=== PATIENT | female | born 1945 | race Caucasian/White ===

== ENCOUNTER 2023-03-24 10:37 | Observation (INO) ==
--- NOTE | 2023-03-24 11:02 | ED.PDOC ---
General ED Provider: Dr. LIDIA KING DO Chief Complaint: Shortness of Air Stated Complaint: Patient is a 78 yo F here for weakness and cough Patient arrives afebrile and slighly hypoxic spo2 93% on room air with stable bp Patient brought in by daughter by CAT Jennings has advanced dementia and cannot provide detailed hx Patient follows with Dr. Franco infrequently Patient lives at home with family and caregiver, she is monitored 21/10 Daughter worried because the patient required more people for lift assistance and was coughing today No known falls or injuries No observed aspiration events Daughter would like UA checked, she has frequent UTI's Patient sitting comfortable following commands Well dressed with good hygeine. Time Seen by Provider: 03/24/23 10:45 Information Source: Patient Primary Care Provider: MANDY FRANCO Nursing and Triage Documentation Reviewed and Agree: Yes What is Opioid Naive?: *Opioid Naive implies the patient is not already taking opioids or not chronically receiving opioids on a daily basis. *PRN dosing is not "usually" associated with tolerance. *Patients are at higher risk of over-sedation and aspiration. What is Opioid Tolerant?: *Opioid Tolerance implies less than the expected response to an opioid. *Acquired tolerance is defined by the patient taking 60mg of oral morphine daily (or equianalgesic dose of another opioid) for 1 week or more. *Often associated with chronic pain. *May take more than usual dose to achieve desired pain control. Review of Systems Review Of Systems Constitutional: Reports No symptoms (unable due to dementia) PFSH Female Reproductive History Menstrual Hx Hysterectomy: Yes Hx Tubal Ligation: No Physical Exam Physical Exam Appearance: Reports Well-appearing and Well-nourished Ill-appearing: Not Applicable Pain Distress: Not Applicable Eyes: Reports KEYSHA and EOMI ENT: Reports Ears normal, Nose normal and Oropharynx normal Neck: Supple Respiratory: Reports Airway patent and Breath sounds clear; Denies Crackles or Rhonchi Cardiovascular: Reports RRR and Pulses normal GI/: Reports Soft and Nontender Musculoskeletal: Reports Normal strength and ROM intact Skin: Reports Warm and Dry Neurological: Reports Sensation intact, Motor intact and Cranial nerves intact Psychiatric: Reports Other (unable to assess due to dementia) Interpretation EKG Interpretation EKG Interpretation By: ED Physician Interpretation: NSR rate 83, no stemi q wnl Course Course 03/24/23 11:13 03/24/23 11:13 Orders, Labs, Meds: Lab Review 03/24/23 03/24/23 03/24/23 10:59 11:13 11:18 WBC 12.33 H RBC 4.42 Hgb 13.1 Hct 40.4 MCV 91.4 MCH 29.6 MCHC 32.4 RDW Coeff of Noel 13.5 Plt Count 254 Immature Gran % (Auto) 0.5 Neut % (Auto) 80.6 H Lymph % (Auto) 9.4 L [place] % (Auto) 9.1 Eos % (Auto) 0.1 Baso % (Auto) 0.3 Neut # (Auto) 9.9 H Lymph # (Auto) 1.2 [place] # (Auto) 1.1 Eos # (Auto) 0.0 Baso # (Auto) 0.0 Immature Gran # (Auto) 0.1 Puncture Site Rbrach Base Excess 0.2 O2 Saturation 96.0 ABG pH 7.56 H* ABG pCO2 25.0 L ABG pO2 70.0 L ABG HCO3 22.4 ABG Total CO2 23.2 Hemoglobin 1.6 H Oxyhemoglobin 92.4 L Carboxyhemoglobin 2.9 H Total Hemoglobin 14.0 FiO2 % 21.0 Sodium 134.2 L Potassium 3.70 Chloride 102.9 Carbon Dioxide 21.0 L Anion Gap 14.00 BUN 12.2 Creatinine 0.63 Estimated GFR (MDRD) 91.00 BUN/Creatinine Ratio 19.36 Glucose 157.4 H Lactic Acid 1.26 Calcium 8.44 Total Bilirubin 2.04 H AST 20.1 ALT 13.0 Alkaline Phosphatase 93.9 Total Creatine Kinase 27.0 L Troponin I < 0.012 Total Protein 7.62 Albumin 4.21 Globulin 3.41 Albumin/Globulin Ratio 1.23 Procalcitonin < 0.05 TSH 0.674 Free T4 1.47 Influ A Molecular Assay Negative by naat Influ B Molecular Assay Negative by naat RSV Antigen Negative by naat SARS CoV-2 RNA Rapid DONATO Negative Orders Category Date Time Status ADMIT OBSERVATION [PLACE PATIENT OBSERVATION] .TO ADMISSION 03/24/23 12:48 Active MEDSURG (MONITORED BED) ABG DRAW REQUEST Stat CARDIO 03/24/23 11:18 Completed EKG-(ED ONLY) Stat CARDIO 03/24/23 10:57 Completed OXYGEN Routine CARDIO 03/24/23 13:07 Ordered ACTIVITY .Up With Assistance CARE 12/25/23 13:07 Active INTAKE & OUTPUT Q8HR CARE 03/24/23 13:07 Active NPO REMINDER: IMAGING ONCE CARE 03/24/23 10:57 Completed TELEMETRY MONITORING TELE CARE 03/24/23 12:48 Active VITAL SIGNS Q4HR CARE 03/24/23 13:07 Active CARDIAC DIET DIETARY 03/24/23 Dinner Ordered ABG COOX Stat LAB 03/24/23 11:18 Completed CBC W/ AUTO DIFF DAILY@0600 LAB 03/25/23 06:00 Ordered CBC W/ AUTO DIFF DAILY@0600 LAB 03/26/23 06:00 Ordered CBC W/ AUTO DIFF Stat LAB 03/24/23 11:13 Completed COMPREHENSIVE METABOLIC PANEL DAILY@0600 LAB 03/25/23 06:00 Ordered COMPREHENSIVE METABOLIC PANEL DAILY@0600 LAB 03/26/23 06:00 Ordered COMPREHENSIVE METABOLIC PANEL Stat LAB 03/24/23 11:13 Completed CREATINE KINASE Stat LAB 03/24/23 11:13 Completed FLU A & B MOLECULAR [FLU A/B MOLECULAR] Stat LAB 03/24/23 10:59 Completed FREE T4 (FREE THYROXINE) Stat LAB 03/24/23 11:13 Completed LACTIC ACID Stat LAB 03/24/23 11:13 Completed PROCALCITONIN Stat LAB 03/24/23 11:13 Completed PT WITH INR DAILY@0600 LAB 03/25/23 06:00 Ordered PT WITH INR DAILY@0600 LAB 03/26/23 06:00 Ordered RSV Stat LAB 03/24/23 10:59 Completed SARS COV-2 RNA RAPID DONATO Stat LAB 03/24/23 10:59 Completed THYROID STIMULATING HORMONE Stat LAB 03/24/23 11:13 Completed TROPONIN I Stat LAB 03/24/23 11:13 Completed UA [URINALYSIS C & S IF INDICATED] Stat LAB 03/24/23 10:58 Uncollected Acetaminophen [Tylenol] Meds 03/24/23 13:07 Active 650 mg PO Q4H PRN Enoxaparin Sodium [Lovenox] Meds 03/24/23 13:10 Active 80 mg SUBCUT Q12HR CTA CHEST PE PROTOCOL Stat RADS 03/24/23 10:56 Completed US VENOUS SCAN ARJUN LEGS [U/S VENOUS SCAN ARJUN LEGS] RADS 03/25/23 07:00 Ordered Routine Medications Generic Name Dose Route Start Last Admin Trade Name Freq PRN Reason Stop Dose Admin Acetaminophen 650 mg 03/24/23 13:07 Acetaminophen 325 Mg Tablet PO Q4H PRN Mild Pain Enoxaparin Sodium 80 mg 03/24/23 13:10 03/24/23 13:31 Enoxaparin Sodium 100 Mg/Ml Syr SUBCUT 80 mg Q12HR ROSE MARIE Administration Vital Signs: Temp Pulse Resp BP Pulse Ox 03/24/23 10:51 97.8 F 85 18 126/78 94 L MDM: Patient is a 78 yo F here for weakness and cough per family Patient afebrile and mildly hypoxic at 90% with stable blood pressure Hx form family chart review by me Exam concerning for hypoxia on monitors 3+ labs and 2 images reviewed by me I consulted with radiologist- 2x right lung PE without right heart strain Hospitalist ROCIO Chatman agrees to admission WDX: Hypoxia, weakness, PE, discomfort acute moderate complexity DDX: I considered sepsis, shock, aspiration but these are less likely SDOH: Patient will improve with admission and starting anticoagulation Unfortunately Daughter/POA became upset. She wanted her mother transferred to [facility]. I explained I can try, but we can meet her needs here and they may refuse if higher level of care is not required. She is unsure if I am qualified to care for her mother and questioned my credentials. She then was upset that the PA was the hospitalist instead of a "real doctor." I explained she can Leave A and go anywhere. I can admit her here, or try to transfer. I told her transfer may take time because we are quite busy. She asked why Dr. Franco was not in the hospital today, I explained he was not on the schedule. 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 She declined to trial transfer or leave, she now requests admission for patietn here, I encouraged her to talk to [employer] OPER[facility]/HR/Dr. Farnco if she has concerns about why the hospital is staffed how it is. Team professional despite multiple demeaning remarks from AI. Patient admitted stable. Discharge Plan Discharge Patient Disposition: PLACED OBSERVATION Discharge Problem: Lung nodule, Pleural effusion, Hypoxia, Pulmonary emboli Did you review [place] BINDERY OPERATOR for ALL controlled substances?: Not Applicable ED Provider: LIDIA KING Condition: Fair Physician Progress Note: []
[2023-03-24 11:18] LABS: BASOPHILS % (AUTO) 0.3 % (0.0-3.0); EOSINOPHILS % (AUTO) 0.1 % (0.0-7.0); HEMATOCRIT 40.4 % (37.0-47.0); HEMOGLOBIN 13.1 g/dl (12.0-16.0); IMMATURE GRANULOCYTE # (AUTO) 0.1 (0.0-1.0); IMMATURE GRANULOCYTE % (AUTO) 0.5 % (0.0-5.0); LYMPHOCYTES # (AUTO) 1.2 K/uL (0.60-3.4); LYMPHOCYTES % (AUTO) 9.4 (10.0-50.0); MEAN CORPUSCULAR HEMOGLOBIN 29.6 pg (27.0-31.0); MEAN CORPUSCULAR HGB CONC 32.4 (31.8-35.4); MEAN CORPUSCULAR VOLUME 91.4 fl (81.0-99.0); MONOCYTES # (AUTO) 1.1 K/uL (0.4-2.0); MONOCYTES % (AUTO) 9.1 (0-10); NEUTROPHILS # (AUTO) 9.9 K/ul (2.0-6.9); NEUTROPHILS % (AUTO) 80.6 % (42.2-75.2); PLATELET COUNT 254 10^3/uL (140-440); RDW COEFFICIENT OF VARIATION 13.5 % (11.6-14.8); RED BLOOD COUNT 4.42 10^6/ul (4.20-5.40); WHITE BLOOD COUNT 12.33 K/ul (4.6-10.2)
[2023-03-24 11:32] LABS: ALBUMIN 4.21 g/dL (3.5-5.0); ALKALINE PHOSPHATASE 93.9 U/L (53-141); ASPARTATE AMINO TRANSFERASE 20.1 U/L (14-36); BILIRUBIN,TOTAL 2.04 mg/dL (0.2-1.3); BLOOD UREA NITROGEN 12.2 mg/dL (7-17); CALCIUM 8.44 mg/dL (8.4-10.2); CHLORIDE 102.9 mmol/L (98-107); CREATININE 0.63 mg/dL (0.60-1.30); GLUCOSE 157.4 mg/dL (74-106); SODIUM 134.2 mmol/L (134.5-145); TOTAL PROTEIN 7.62 g/dL (6.3-8.2)
[2023-03-24 11:32] LABS: ABG PH 7.56 (7.35-7.45); BEecf 0.2 (-2.0-3.0); COHb 2.9 (0.5-1.5); HCO3 22.4 (21-28); MetHb 1.6 (0-1.5); TCO2 23.2 (19-24)
[2023-03-24 11:33] LABS: ABG O2 HGB 92.4 % (95-100)
[2023-03-24 11:47] LABS: TROPONIN I < 0.012 ng/ml (0.0000-0.120)
[2023-03-24 11:59] LABS: MOLECULAR FLU A NEGATIVE BY NAAT (NEGATIVE); MOLECULAR FLU B NEGATIVE BY NAAT (NEGATIVE); RSV MOLECULAR NEGATIVE BY NAAT (NEGATIVE); SARS COV-2 RNA RAPID NAAT NEGATIVE (NEGATIVE)
[2023-03-24 12:02] LABS: THYROID STIMULATING HORMONE 0.674 uIU/L (0.465-4.68)
--- NOTE | 2023-03-24 12:43 | CT ---
EXAM: CTA CHEST WITH CONTRAST HISTORY: Hypoxia, smoker and cough COMPARISON: None TECHNIQUE: Multi-slice transaxial helical images are acquired through the chest according to an [facility] ogram protocol. 3-D volume images are provided. All CT scans are performed using dose optimization techniques as appropriate to the performed exam and includes at least one of the following: Automate d exposure control, adjustment of the mA and/or kV according to size, and the use of iterative recons truction technique. CONTRAST: 100 mL Omnipaque-350 IV FINDINGS: There are intraluminal filling defects within lobar branches of the middle lobe and lobar to segmental branches of the right lower lobe. No other pulmonary emboli are appreciated. The heart is mildly enlarged. There is no evidence of right ventricular strain. No pericardial effusion. Tr briana right pleural fluid layers dependently. A left pleural fluid. There is a solid nodule in the ri ght upper lobe with spiculated margins measuring 1.1 x 1.1 cm on series 9 image number 16. There is an additional solid nodule in the right upper lobe measuring 0.8 cm on image number 26. The dependen t lungs are atelectatic. No acute infiltrates. Simple acquired renal cysts are noted. There is suggestion of a previous right partial posterior hep atectomy. The solid organs are otherwise normal in their visualized portions of the upper abdomen. No suspicious osteolytic or osteoblastic bone lesions. No acute bony abnormalities are evident. IMPRESSION: - Pulmonary emboli within lobar branches of the middle lobe and lobar/subsegmental branches of the ri ght lower lobe. No right ventricular strain. - Two solid nodules in the right upper lobe measuring 1.1 cm and 0.8 cm respectively. Recommend corby elation with a PET CT and/or biopsy. - Mild cardiomegaly. - No acute infiltrates. - Trace right pleural effusion. - Results discussed with Dr. Orr in the ER on 03/24/2023 at [address] scans are performed using dose optimization techniques as appropriate to the performed exam an d include at least one of the following: Automated exposure control, adjustment of the mA and/or kV according t o size, and the use of iterative reconstruction technique.
--- NOTE | 2023-03-24 13:00 | PCM ---
Date of Service Date Seen by Provider: 03/24/23 Time Seen by Provider: 13:00 Admit Day/Time Admission Date: 03/24/23 Admission Time: 12:48 Reason for Admission Chief Complaint: RLL Hospital Provider Hospital [facility] Primary Care Physician: MANDY GONZÁLES History of Present Illness History of Present Illness: Patient is an 78 year old female with pmhx of dementia, hypothyroidism, hypertension, hyperlipidemia, gerd from home who presented for weakness. Patient history provided by daughter/POA. She's been declining since thanksgiving from a mobility standpoint. She then has seemed more weak than normal. Her mentation is at baseline. She has had a cough. She also has frequent UTIs. In the ER she was found to have right sided pulmonary emboli. No evidence of heart strain. UA not yet collected. Labs rather unremarkable. O2 sat 90%. Daughter initially wanted transfer but after discussing expected plan of care here she was agreeable to stay. Patient unable to answer any orientation questions appropriately and is unable to tell me why she is here. ROS limited by patient dementia, obtained from daughter. Case Discussed With Case Discussed With: Patient's case was discussed with the ER Physicians, Dr. Orr. Allergies Allergies Allergy/AdvReac Type Severity Reaction Status Date / Time amoxicillin trihydrate AdvReac Nausea Verified 10/08/22 17:46 [From Augmentin] codeine AdvReac Nausea Verified 10/08/22 17:46 potassium clavulanate AdvReac Nausea Verified 10/08/22 17:46 [From Augmentin] Current Medications Home Medications enalapril maleate 5 mg tablet 5 mg PO DAILY 10/20/14 [History Confirmed 03/24/23 Last Taken Unknown] levothyroxine 50 mcg tablet (Synthroid) 50 mcg PO QDAC 10/20/14 [History Confirmed 03/24/23 Last Taken Unknown] nifedipine 60 mg tablet,extended release 24 hr (Procardia XL) 30 mg PO DAILY 10/20/14 [History Confirmed 03/24/23 Last Taken Unknown] simvastatin 40 mg tablet 40 mg PO BEDTIME 10/20/14 [History Confirmed 03/24/23 Last Taken Unknown] fluoxetine 10 mg capsule (Prozac) 20 mg PO QDAY 06/12/22 [History Confirmed 03/24/23 Last Taken Unknown] ergocalciferol (vitamin D2) 1,250 mcg (50,000 unit) capsule (Vitamin D2) 1,250 mcg PO DAILY 10/08/22 [History Confirmed 03/24/23 Last Taken Unknown] omeprazole 20 mg capsule,delayed release 20 mg PO DAILY 10/08/22 [History Confirmed 03/24/23 Last Taken Unknown] quetiapine 25 mg tablet 25 mg PO DAILY 10/08/22 [History Confirmed 03/24/23 Last Taken Unknown] furosemide 20 mg tablet 20 mg PO DAILY 03/24/23 [History Confirmed 03/24/23 Last Taken Unknown] lorazepam 0.5 mg tablet 0.25 mg PO BID PRN agitation 03/24/23 [History Confirmed 03/24/23 Last Taken Unknown] memantine 28 mg capsule sprinkle,extended release 24hr 28 mg PO DAILY 03/24/23 [History Confirmed 03/24/23 Last Taken Unknown] potassium chloride 10 mEq tablet,extended release 10 meq PO BID 03/24/23 [History Confirmed 03/24/23 Last Taken Unknown] Home Acetaminophen (Acetaminophen 325 Mg Tablet) 650 mg PO Q4H PRN PRN Reason: Mild Pain Enoxaparin Sodium (Enoxaparin Sodium 100 Mg/Ml Syr) 80 mg SUBCUT Q12HR ROSE MARIE Last Admin: 03/24/23 13:31 Dose: 80 mg Opioid Naive vs. Tolerant Does Patient Take Opioids?: No Is Patient Opioid Naive?: Yes What is Opioid Naive?: *Opioid Naive implies the patient is not already taking opioids or not chronically receiving opioids on a daily basis. *PRN dosing is not "usually" associated with tolerance. *Patients are at higher risk of over-sedation and aspiration. Is Patient Opioid Tolerant?: No What is Opioid Tolerant?: *Opioid Tolerance implies less than the expected response to an opioid. *Acquired tolerance is defined by the patient taking 60mg of oral morphine daily (or equianalgesic dose of another opioid) for 1 week or more. *Often associated with chronic pain. *May take more than usual dose to achieve desired pain control. Review of Systems Constitutional: Reports Fatigue and Weakness; Denies Fever Respiratory: Reports Cough Neurological: Reports Weakness and Problems with walking Physical examination Most Recent Vital Signs: Most Recent Vital Signs Temperature 97.8 F 03/24/23 10:51 Temperature Source Infrared 03/24/23 10:51 Pulse Rate 85 12/25/23 10:51 Respiratory Rate 18 03/24/23 10:51 Blood Pressure 126/78 03/24/23 10:51 O2 Sat by Pulse Oximetry 94 L 03/24/23 10:51 Height 5 ft 5 in 03/24/23 10:51 Weight 180 lb 1.883 oz 03/24/23 10:51 Telemetry Heart Rate 75 03/08/16 13:00 Appearance: Positive No Apparent Distress and Other (+Alert ) Skin: Positive [place], Warm and Good Turgor; Negative Rashes HEENT: Positive Normocephalic and Atraumatic Neck: Positive Supple and Midline Trachea Chest/Lungs: Positive Clear to Auscultation Bilaterally; Negative Rales, Rhonci or Wheezes Heart: Positive RRR GI/: Positive Soft, Nontender, Bowel Sounds Normal and No Distention Neurological: Positive Alert, Disorinted (baseline ) and Other (+generalized weakness, equal strength. ) Psychiatric: Positive Other (+unable to fully assess due to dementia. ) Labs This Visit Labs This Visit: Labs This Visit 03/24/23 03/24/23 03/24/23 10:59 11:13 11:18 WBC 12.33 H RBC 4.42 Hgb 13.1 Hct 40.4 MCV 91.4 MCH 29.6 MCHC 32.4 RDW Coeff of Noel 13.5 Plt Count 254 Immature Gran % (Auto) 0.5 Neut % (Auto) 80.6 H Lymph % (Auto) 9.4 L [place] % (Auto) 9.1 Eos % (Auto) 0.1 Baso % (Auto) 0.3 Neut # (Auto) 9.9 H Lymph # (Auto) 1.2 [place] # (Auto) 1.1 Eos # (Auto) 0.0 Baso # (Auto) 0.0 Immature Gran # (Auto) 0.1 Puncture Site Rbrach Base Excess 0.2 O2 Saturation 96.0 ABG pH 7.56 H* ABG pCO2 25.0 L ABG pO2 70.0 L ABG HCO3 22.4 ABG Total CO2 23.2 Hemoglobin 1.6 H Oxyhemoglobin 92.4 L Carboxyhemoglobin 2.9 H Total Hemoglobin 14.0 FiO2 % 21.0 Sodium 134.2 L Potassium 3.70 Chloride 102.9 Carbon Dioxide 21.0 L Anion Gap 14.00 BUN 12.2 Creatinine 0.63 Estimated GFR (MDRD) 91.00 BUN/Creatinine Ratio 19.36 Glucose 157.4 H Lactic Acid 1.26 Calcium 8.44 Total Bilirubin 2.04 H AST 20.1 ALT 13.0 Alkaline Phosphatase 93.9 Total Creatine Kinase 27.0 L Troponin I < 0.012 Total Protein 7.62 Albumin 4.21 Globulin 3.41 Albumin/Globulin Ratio 1.23 Procalcitonin < 0.05 TSH 0.674 Free T4 1.47 Influ A Molecular Assay Negative by naat Influ B Molecular Assay Negative by naat RSV Antigen Negative by naat SARS CoV-2 RNA Rapid DONATO Negative Imaging Imaging: EXAM: CTA CHEST WITH CONTRAST HISTORY: Hypoxia, smoker and cough COMPARISON: None TECHNIQUE: Multi-slice transaxial helical images are acquired through the chest according to an angiogram protocol. 3-D volume images are provided. All CT scans are performed using dose optimization techniques as appropriate to the performed exam and includes at least one of the following: Automated exposure control, adjustment of the mA and/or kV according to size, and the use of iterative reconstruction technique. CONTRAST: 100 mL Omnipaque-350 IV FINDINGS: There are intraluminal filling defects within lobar branches of the middle lobe and lobar to segmental branches of the right lower lobe. No other pulmonary emboli are appreciated. The heart is mildly enlarged. There is no evidence of right ventricular strain. No pericardial effusion. Trace right pleural fluid layers dependently. A left pleural fluid. There is a solid nodule in the right upper lobe with spiculated margins measuring 1.1 x 1.1 cm on series 9 image number 16. There is an additional solid nodule in the right upper lobe measuring 0.8 cm on image number 26. The dependent lungs are atelectatic. No acute infiltrates. Simple acquired renal cysts are noted. There is suggestion of a previous right partial posterior hepatectomy. The solid organs are otherwise normal in their visualized portions of the upper abdomen. No suspicious osteolytic or osteoblastic bone lesions. No acute bony abnormalities are evident. IMPRESSION: - Pulmonary emboli within lobar branches of the middle lobe and lobar/subsegmental branches of the right lower lobe. No right ventricular strain. - Two solid nodules in the right upper lobe measuring 1.1 cm and 0.8 cm respectively. Recommend correlation with a PET CT and/or biopsy. - Mild cardiomegaly. - No acute infiltrates. - Trace right pleural effusion. - Results discussed with Dr. Orr in the ER on 03/24/2023 at 1237 hours. Review Statement Review Statement: I have independently reviewed and interpreted the labs/EKGs/imaging that were ordered by the ER provider. I have reviewed all outside records that are available currently in our EMR including imaging/notes/labs from previous visits. Plan Plan: 1. Pulmonary emboli of right lower lobe - Lovenox 1 mg/kg q12hrs. O2 prn. US duplex of lower ext in AM. No evidence of heart strain on CT. Trop negative. O2 saturation about 90%. Echo when able, otherwise will need outpatient. 2. Dementia - Continue home medications. Lorazepam 0.25 mg prn bid for agitation, per daughter. 3. Hypertension - Cont home meds 4. Hyperlipidemia - Cont simvastatin 5. GERD - Cont home meds 6. Hypothyroidism - Cont home meds 7. Lung nodules, right - F/u outpatient Will f/u on UA and add antibiotics as warranted. DVT Prophylaxis: Lovenox Time Spent: Greater than 80 minutes spent with patient, 50% of the time spent with this patient was devoted to counseling and coordination of care. [facility] Plannin minutes spent discussing advance care planning. DNI/CPR Admit to: Obs Discussed Plan of Care with Dr. Payam Stapleton.
[2023-03-24] MEDS ORDERED: TYLENOL PO PRN (13:07)
[2023-03-24] MEDS: LOVENOX SUBCUT SCH ×2 (13:31→20:24)
[2023-03-24] MEDS: MICRO-K CAP PO SCH (18:02)
[2023-03-24 18:43] LABS: BILIRUBIN,URINE Negative (NEGATIVE); CLARITY,URINE Clear (CLEAR); COLOR,URINE Yellow (YELLOW); GLUCOSE, URINE (UA) Negative (NEGATIVE); KETONES,URINE Negative (NEGATIVE); LEUKOCYTE ESTERASE ,URINE Negative (NEGATIVE); NITRITE,URINE Negative (NEGATIVE); PH,URINE 7.5 (5-9); PROTEIN,URINE Negative (NEGATIVE); URINE, BLOOD Trace-intact (NEGATIVE)
[2023-03-24 18:51] LABS: BACTERIA,URINE 4+ (NOT PRESENT)
[2023-03-24 18:52] LABS: MUCUS,URINE TRACE (NOT PRESENT)
[2023-03-24] MEDS: ZOCOR PO SCH (20:23)
[2023-03-24] MEDS: ATIVAN PO PRN (20:24)
[2023-03-24] MEDS: SEROQUEL PO SCH (20:24)
[2023-03-24] MEDS: CALMOSEPTINE OINTMENT TP SCH (20:36)
[2023-03-25] MEDS: PRILOSEC PO SCH (05:36)
[2023-03-25] MEDS: LASIX TAB PO SCH (05:36)
[2023-03-25] MEDS: SYNTHROID PO SCH (05:37)
[2023-03-25 05:54] LABS: BASOPHILS % (AUTO) 0.6 % (0.0-3.0); EOSINOPHILS # (AUTO) 0.1 K/ul (0.0-0.7); EOSINOPHILS % (AUTO) 1.4 % (0.0-7.0); HEMATOCRIT 38.8 % (37.0-47.0); HEMOGLOBIN 12.4 g/dl (12.0-16.0); IMMATURE GRANULOCYTE % (AUTO) 0.3 % (0.0-5.0); LYMPHOCYTES % (AUTO) 28.6 (10.0-50.0); MEAN CORPUSCULAR HEMOGLOBIN 29.5 pg (27.0-31.0); MEAN CORPUSCULAR VOLUME 92.2 fl (81.0-99.0); MONOCYTES # (AUTO) 0.8 K/uL (0.4-2.0); MONOCYTES % (AUTO) 11.2 (0-10); NEUTROPHILS % (AUTO) 57.9 % (42.2-75.2); PLATELET COUNT 221 10^3/uL (140-440); RDW COEFFICIENT OF VARIATION 13.5 % (11.6-14.8); RED BLOOD COUNT 4.21 10^6/ul (4.20-5.40); WHITE BLOOD COUNT 6.96 K/ul (4.6-10.2)
[2023-03-25 06:07] LABS: ALANINE AMINOTRANSFERASE 13.6 U/L (0-35); ALBUMIN 3.69 g/dL (3.5-5.0); ALKALINE PHOSPHATASE 86.6 U/L (53-141); ASPARTATE AMINO TRANSFERASE 21.5 U/L (14-36); BILIRUBIN,TOTAL 1.51 mg/dL (0.2-1.3); BLOOD UREA NITROGEN 10.6 mg/dL (7-17); CALCIUM 8.62 mg/dL (8.4-10.2); CHLORIDE 102.7 mmol/L (98-107); CREATININE 0.65 mg/dL (0.60-1.30); GLUCOSE 105.6 mg/dL (74-106); POTASSIUM 3.2 mmol/L (3.5-5.1); SODIUM 135.1 mmol/L (134.5-145); TOTAL PROTEIN 6.92 g/dL (6.3-8.2)
[2023-03-25 06:10] LABS: PROTHROMBIN TIME 10.7 SEC (9.3-11.0)
[2023-03-25] MEDS ORDERED: K-DUR PO ONE (08:13)
[2023-03-25] MEDS ORDERED: PROZAC PO SCH (09:00)
[2023-03-25] MEDS: PROCARDIA XL PO SCH (09:38)
[2023-03-25] MEDS: LOVENOX SUBCUT SCH ×2 (09:38→21:01)
[2023-03-25] MEDS: PROZAC PO SCH (09:38)
[2023-03-25] MEDS: VASOTEC PO SCH (09:38)
[2023-03-25] MEDS: MICRO-K CAP PO SCH ×2 (09:38→17:09)
[2023-03-25] MEDS: CALMOSEPTINE OINTMENT TP SCH ×2 (09:56→21:09)
--- NOTE | 2023-03-25 10:36 | US ---
EXAM: BILATERAL LOWER EXTREMITY DEEP VENOUS ULTRASOUND WITH DOPPLER IMAGING HISTORY: pain. TECHNIQUE: Maria-scale ultrasound with compression maneuvers and color and spectral Doppler ultrasound at rest and with augmentation of the veins was performed. Images were obtained and stored in a perm anent archive. Color spectral Doppler performed. COMPARISON: None FINDINGS / IMPRESSION: No deep venous thrombosis (DVT) in the bilateral lower extremities. No superficial venous thrombosis (SVT) in the bilateral lower extremities at the levels examined.
--- NOTE | 2023-03-25 11:54 | PCM.PROG ---
Date/Time Seen Date Seen by Provider: 03/25/23 Time Seen by Provider: 09:00 Provider Provider: BIMAL WOMACK PA-C, [facility] ([facility]ist Group Chief Complaint Chief Complaint: RLL PE Subjective Subjective: Daughter at bedside. Patient denies complaints but poor historian. Daughter feels patient looks better today. She states at baseline patient is able to ambulate with minimal assistance. She has been very weak. Still requiring oxygen today, working on weaning down. Objective Appearance: Positive No Apparent Distress and Other (+Alert ) Chest/Lungs: Positive Clear to Auscultation Bilaterally; Negative Rales, Rhonci or Wheezes Heart: Positive RRR GI/: Positive Soft, Nontender and Bowel Sounds Normal Musculoskeletal: Positive Other (+generalized nonpitting edema jojo lower ext, mild ) Neurological: Positive Cranial Nerves Intact (able to follow basic commands ), Alert, Disorinted (baseline ) and Other (+generalized weakness ) Vital Signs Vital Signs: Vital Signs: Last 24 Hours 03/24/23 15:04 03/24/23 15:04 03/24/23 15:36 Temperature 98.0 F Temperature Source Oral Pulse Rate 82 Respiratory Rate 16 18 Blood Pressure Blood Pressure Mean Blood Pressure Left Arm 128/77 Blood Pressure Location Blood Pressure Position Sitting O2 Sat by Pulse Oximetry 91 L Oxygen Delivery Method Room Air Room Air Oxygen Flow Rate Height 5 ft 4 in Weight 175 lb Telemetry Type Remote Telemetry Telemetry Monitoring Started Telemetry Heart Rate 85 Telemetry SPO2 96 EKG UT Interval 0.19 EKG QRS Interval 0.05 L Telemetry Strip Reading SR 03/24/23 16:00 03/24/23 17:00 03/24/23 17:14 Temperature Temperature Source Pulse Rate Respiratory Rate Blood Pressure Blood Pressure Mean Blood Pressure Left Arm Blood Pressure Location Blood Pressure Position O2 Sat by Pulse Oximetry 96 Oxygen Delivery Method Nasal Cannula Nasal Cannula Nasal Cannula Oxygen Flow Rate 2 Height Weight Telemetry Type Telemetry Monitoring Telemetry Heart Rate Telemetry SPO2 EKG UT Interval EKG QRS Interval Telemetry Strip Reading 03/24/23 18:00 03/24/23 18:00 03/24/23 19:00 Temperature 97.7 F Temperature Source Oral Pulse Rate 68 Respiratory Rate 15 Blood Pressure 95/62 Blood Pressure Mean 73 Blood Pressure Left Arm Blood Pressure Location Right Arm Blood Pressure Position Supine O2 Sat by Pulse Oximetry 96 Oxygen Delivery Method Nasal Cannula Nasal Cannula Oxygen Flow Rate 1 Height Weight Telemetry Type Remote Telemetry Telemetry Monitoring Continues Telemetry Heart Rate 70 Telemetry SPO2 95 EKG UT Interval 0.19 EKG QRS Interval 0.07 Telemetry Strip Reading SR 03/24/23 19:00 03/24/23 19:53 03/24/23 20:00 Temperature Temperature Source Pulse Rate Respiratory Rate Blood Pressure Blood Pressure Mean Blood Pressure Left Arm Blood Pressure Location Blood Pressure Position O2 Sat by Pulse Oximetry 94 L Oxygen Delivery Method Nasal Cannula Nasal Cannula Nasal Cannula Oxygen Flow Rate 2 Height Weight Telemetry Type Telemetry Monitoring Telemetry Heart Rate Telemetry SPO2 EKG UT Interval EKG QRS Interval Telemetry Strip Reading 03/24/23 20:00 03/24/23 21:00 03/24/23 21:23 Temperature 98.2 F Temperature Source Oral Pulse Rate 70 Respiratory Rate 16 Blood Pressure 97/59 L Blood Pressure Mean 71 Blood Pressure Left Arm Blood Pressure Location Left Arm Blood Pressure Position Supine O2 Sat by Pulse Oximetry 96 Oxygen Delivery Method Nasal Cannula Nasal Cannula Nasal Cannula Oxygen Flow Rate 1 Height Weight Telemetry Type Telemetry Monitoring Telemetry Heart Rate Telemetry SPO2 EKG UT Interval EKG QRS Interval Telemetry Strip Reading 03/24/23 22:00 03/24/23 23:00 03/25/23 00:00 Temperature Temperature Source Pulse Rate Respiratory Rate Blood Pressure Blood Pressure Mean Blood Pressure Left Arm Blood Pressure Location Blood Pressure Position O2 Sat by Pulse Oximetry Oxygen Delivery Method Nasal Cannula Nasal Cannula Nasal Cannula Oxygen Flow Rate Height Weight Telemetry Type Telemetry Monitoring Telemetry Heart Rate Telemetry SPO2 EKG UT Interval EKG QRS Interval Telemetry Strip Reading 03/25/23 01:00 03/25/23 01:00 03/25/23 02:00 Temperature 98.6 F Temperature Source Temporal Artery Scan Pulse Rate 92 Respiratory Rate 16 Blood Pressure 110/72 Blood Pressure Mean 84 Blood Pressure Left Arm Blood Pressure Location Left Arm Blood Pressure Position Supine O2 Sat by Pulse Oximetry 96 Oxygen Delivery Method Nasal Cannula Room Air Oxygen Flow Rate Height Weight Telemetry Type Remote Telemetry Telemetry Monitoring Continues Telemetry Heart Rate 63 Telemetry SPO2 94 EKG UT Interval 0.20 EKG QRS Interval 0.07 Telemetry Strip Reading SR 03/25/23 02:00 03/25/23 03:00 03/25/23 04:00 Temperature Temperature Source Pulse Rate Respiratory Rate Blood Pressure Blood Pressure Mean Blood Pressure Left Arm Blood Pressure Location Blood Pressure Position O2 Sat by Pulse Oximetry Oxygen Delivery Method Nasal Cannula Room Air Room Air Oxygen Flow Rate Height Weight Telemetry Type Telemetry Monitoring Telemetry Heart Rate Telemetry SPO2 EKG UT Interval EKG QRS Interval Telemetry Strip Reading 03/25/23 05:00 03/25/23 05:04 03/25/23 05:06 Temperature 98.4 F Temperature Source Oral Pulse Rate 71 Respiratory Rate 18 Blood Pressure 110/68 Blood Pressure Mean 82 Blood Pressure Left Arm Blood Pressure Location Right Arm Blood Pressure Position Supine O2 Sat by Pulse Oximetry 96 95 Oxygen Delivery Method Nasal Cannula Nasal Cannula Nasal Cannula Oxygen Flow Rate 2 2 Height Weight Telemetry Type Telemetry Monitoring Telemetry Heart Rate Telemetry SPO2 EKG UT Interval EKG QRS Interval Telemetry Strip Reading 03/25/23 05:41 03/25/23 07:00 03/25/23 07:00 Temperature Temperature Source Pulse Rate Respiratory Rate Blood Pressure Blood Pressure Mean Blood Pressure Left Arm Blood Pressure Location Blood Pressure Position O2 Sat by Pulse Oximetry Oxygen Delivery Method Nasal Cannula Nasal Cannula Oxygen Flow Rate Height Weight Telemetry Type Remote Telemetry Telemetry Monitoring Continues Telemetry Heart Rate 61 Telemetry SPO2 95 EKG UT Interval 0.18 EKG QRS Interval 0.09 Telemetry Strip Reading NSR 03/25/23 08:00 03/25/23 09:00 03/25/23 10:00 Temperature Temperature Source Pulse Rate Respiratory Rate Blood Pressure Blood Pressure Mean Blood Pressure Left Arm Blood Pressure Location Blood Pressure Position O2 Sat by Pulse Oximetry Oxygen Delivery Method Nasal Cannula Nasal Cannula Nasal Cannula Oxygen Flow Rate Height Weight Telemetry Type Telemetry Monitoring Telemetry Heart Rate Telemetry SPO2 EKG UT Interval EKG QRS Interval Telemetry Strip Reading 03/25/23 10:00 03/25/23 10:00 03/25/23 10:46 Temperature 97.5 F L Temperature Source Oral Pulse Rate 77 Respiratory Rate 13 Blood Pressure 124/70 Blood Pressure Mean 88 Blood Pressure Left Arm Blood Pressure Location Right Arm Blood Pressure Position Supine O2 Sat by Pulse Oximetry 98 97 Oxygen Delivery Method Nasal Cannula Nasal Cannula Nasal Cannula Oxygen Flow Rate 2 2 1 Height Weight Telemetry Type Telemetry Monitoring Telemetry Heart Rate Telemetry SPO2 EKG UT Interval EKG QRS Interval Telemetry Strip Reading 03/25/23 11:00 Temperature Temperature Source Pulse Rate Respiratory Rate Blood Pressure Blood Pressure Mean Blood Pressure Left Arm Blood Pressure Location Blood Pressure Position O2 Sat by Pulse Oximetry Oxygen Delivery Method Nasal Cannula Oxygen Flow Rate Height Weight Telemetry Type Telemetry Monitoring Telemetry Heart Rate Telemetry SPO2 EKG UT Interval EKG QRS Interval Telemetry Strip Reading Lab Results Lab Results: Lab Results: Last 24 Hours 03/25/23 03/24/23 03/24/23 05:04 18:36 11:13 WBC 6.96 D RBC 4.21 Hgb 12.4 Hct 38.8 MCV 92.2 MCH 29.5 MCHC 32.0 RDW Coeff of Noel 13.5 Plt Count 221 Immature Gran % (Auto) 0.3 Neut % (Auto) 57.9 Lymph % (Auto) 28.6 [place] % (Auto) 11.2 H Eos % (Auto) 1.4 Baso % (Auto) 0.6 Neut # (Auto) 4.0 Lymph # (Auto) 2.0 [place] # (Auto) 0.8 Eos # (Auto) 0.1 Baso # (Auto) 0.0 Immature Gran # (Auto) 0.0 PT 10.7 INR 1.03 Sodium 135.1 Potassium 3.20 L Chloride 102.7 Carbon Dioxide 27.0 Anion Gap 8.60 BUN 10.6 Creatinine 0.65 Estimated GFR (MDRD) 88.00 BUN/Creatinine Ratio 16.30 Glucose 105.6 D Calcium 8.62 Total Bilirubin 1.51 H AST 21.5 ALT 13.6 Alkaline Phosphatase 86.6 Total Protein 6.92 Albumin 3.69 Globulin 3.23 Albumin/Globulin Ratio 1.14 Procalcitonin < 0.05 TSH 0.674 Free T4 1.47 Urine Color Yellow Urine Clarity Clear Urine pH 7.5 Ur Specific [place] 1.015 Urine Protein Negative Urine Glucose (UA) Negative Urine Ketones Negative Urine Blood Trace-intact H Urine Nitrite Negative Urine Bilirubin Negative Urine Urobilinogen 2.0 H Ur Leukocyte Esterase Negative Urine Microscopic WBC 2-5 Ur Squamous Epith Cells 5-10 Urine Bacteria 4+ Urine Mucus Trace Influ A Molecular Assay Influ B Molecular Assay RSV Antigen SARS CoV-2 RNA Rapid DONATO 03/24/23 10:59 WBC RBC Hgb Hct MCV MCH MCHC RDW Coeff of Noel Plt Count Immature Gran % (Auto) Neut % (Auto) Lymph % (Auto) [place] % (Auto) Eos % (Auto) Baso % (Auto) Neut # (Auto) Lymph # (Auto) [place] # (Auto) Eos # (Auto) Baso # (Auto) Immature Gran # (Auto) PT INR Sodium Potassium Chloride Carbon Dioxide Anion Gap BUN Creatinine Estimated GFR (MDRD) BUN/Creatinine Ratio Glucose Calcium Total Bilirubin AST ALT Alkaline Phosphatase Total Protein Albumin Globulin Albumin/Globulin Ratio Procalcitonin TSH Free T4 Urine Color Urine Clarity Urine pH Ur Specific [place] Urine Protein Urine Glucose (UA) Urine Ketones Urine Blood Urine Nitrite Urine Bilirubin Urine Urobilinogen Ur Leukocyte Esterase Urine Microscopic WBC Ur Squamous Epith Cells Urine Bacteria Urine Mucus Influ A Molecular Assay Negative by naat Influ B Molecular Assay Negative by naat RSV Antigen Negative by naat SARS CoV-2 RNA Rapid DONATO Negative Additional Comments Additional Comments: I have independently reviewed and interpreted the labs/EKGs/imaging ordered during this hospital stay. I have reviewed outside records that are available in our EMR that pertain to medical stay including imaging/notes/labs from previous visits. EXAM: BILATERAL LOWER EXTREMITY DEEP VENOUS ULTRASOUND WITH DOPPLER IMAGING HISTORY: pain. TECHNIQUE: Maria-scale ultrasound with compression maneuvers and color and spectral Doppler ultrasound at rest and with augmentation of the veins was performed. Images were obtained and stored in a permanent archive. Color spectral Doppler performed. COMPARISON: None FINDINGS / IMPRESSION: No deep venous thrombosis (DVT) in the bilateral lower extremities. No superficial venous thrombosis (SVT) in the bilateral lower extremities at the levels examined. Active Medications Active Medications: Medications Generic Name Dose Route Start Last Admin Trade Name Freq PRN Reason Stop Dose Admin Acetaminophen 650 mg 03/24/23 13:07 Acetaminophen 325 Mg Tablet PO Q4H PRN Mild Pain Calamine/Phenol 1 applic 03/24/23 21:00 03/25/23 09:56 Menthol/Zinc Oxide 113 Gm Ointment TP 1 applic BID ROSE MARIE Administration Enalapril Maleate 5 mg 03/25/23 09:00 03/25/23 09:38 Enalapril Maleate 5 Mg Tablet PO 5 mg DAILY ROSE MARIE Administration Enoxaparin Sodium 80 mg 03/24/23 13:10 03/25/23 09:38 Enoxaparin Sodium 100 Mg/Ml Syr SUBCUT 80 mg Q12HR ROSE MARIE Administration Fluoxetine HCl 20 mg 03/25/23 09:00 03/25/23 09:38 Fluoxetine Hcl 20 Mg Capsule PO 20 mg DAILY ROSE MARIE Administration Furosemide 20 mg 03/25/23 06:00 03/25/23 05:36 Furosemide 20 Mg Tablet PO 20 mg QDAC2 ROSE MARIE Administration Levothyroxine Sodium 50 mcg 03/25/23 06:30 03/25/23 05:37 Levothyroxine Sodium 50 Mcg Tablet PO 50 mcg 0630 ROSE MARIE Administration Lorazepam 0.25 mg 03/24/23 16:24 03/24/23 20:24 Lorazepam 0.5 Mg Tablet PO 0.25 mg BID PRN Administration Agitation Nifedipine 30 mg 03/25/23 09:00 03/25/23 09:38 Nifedipine 30 Mg Tab.Er.24 PO 30 mg DAILY ROSE MARIE Administration Non-Formulary Medication 28 mg 03/25/23 09:00 Memantine PO DAILY ROSE MARIE Omeprazole 20 mg 03/25/23 06:00 03/25/23 05:36 Omeprazole 20 Mg Capsule.Dr PO 20 mg QDAC2 ROSE MARIE Administration Potassium Chloride 10 meq 03/24/23 17:00 03/25/23 09:38 Potassium Chloride 10 Meq Capsule.Er PO 10 meq BIDWM2 ROSE MARIE Administration Quetiapine Fumarate 25 mg 03/24/23 21:00 03/24/23 20:24 Quetiapine Fumarate 25 Mg Tablet PO 25 mg DAILY ROSE MARIE Administration Simvastatin 40 mg 03/24/23 21:00 03/24/23 20:23 Simvastatin 40 Mg Tablet PO 40 mg BEDTIME ROSE MARIE Administration Sodium Chloride 1 syr 03/24/23 21:00 03/25/23 05:37 0.9% Sodium Chloride 10 Ml Disp.Syrin IVF 1 syr Q8HR ROSE MARIE Administration Plan Plan: 1. Acute hypoxic respiratory failure in setting of PEs of right middle/lower lobe - RT consult, O2 prn, wean when able. May need fdc. 2. Pulmonary emboli of right middle/lower lobe - Lovenox 1 mg/kg q12hrs. Will huff novel agents. O2 prn. US duplex of lower ext shows no DVT. No evidence of heart strain on CT. Trop negative. O2 saturation about 90%. Echo when able, otherwise will need outpatient. 3. Dementia - Continue home medications. Lorazepam 0.25 mg prn bid for agitation, per daughter. 4. Hypertension - Cont home meds 5. Hyperlipidemia - Cont simvastatin 6. GERD - Cont home meds 7. Hypothyroidism - Cont home meds 8. Lung nodules, right - F/u outpatient. Discussed with daughter. 9. Hypokalemia - Replaced Dispo: Possible DC tomorrow Daughter requests pulm referral for PEs/lung nodules. CM aware. DVT: Lovenox Review Statement Review Statement: I have personally discussed and reviewed the patient's visit/currently labs/imaging/decision making with Dr. Stapleton, my supervising attending. Greater that 50 minutes spent with patient, 50% of the time spent with this patient was devoted to counseling and coordination of care.
[2023-03-25] MEDS: SEROQUEL PO SCH (11:56)
[2023-03-25] MEDS: ATIVAN PO PRN ×2 (13:28→22:34)
[2023-03-25] MEDS: ZOCOR PO SCH (21:01)
[2023-03-26 05:18] VITALS: BP 119/73; PULSE 74; TEMP 97.2
[2023-03-26 05:30] LABS: BASOPHILS # (AUTO) 0.1 K/uL (0-0.2); BASOPHILS % (AUTO) 0.6 % (0.0-3.0); EOSINOPHILS # (AUTO) 0.2 K/ul (0.0-0.7); EOSINOPHILS % (AUTO) 1.8 % (0.0-7.0); HEMATOCRIT 38.6 % (37.0-47.0); HEMOGLOBIN 11.8 g/dl (12.0-16.0); IMMATURE GRANULOCYTE % (AUTO) 0.2 % (0.0-5.0); LYMPHOCYTES # (AUTO) 2.1 K/uL (0.60-3.4); LYMPHOCYTES % (AUTO) 25.7 (10.0-50.0); MEAN CORPUSCULAR HEMOGLOBIN 28.4 pg (27.0-31.0); MEAN CORPUSCULAR HGB CONC 30.6 (31.8-35.4); MEAN CORPUSCULAR VOLUME 92.8 fl (81.0-99.0); MONOCYTES # (AUTO) 0.7 K/uL (0.4-2.0); MONOCYTES % (AUTO) 8.7 (0-10); NEUTROPHILS # (AUTO) 5.1 K/ul (2.0-6.9); PLATELET COUNT 253 10^3/uL (140-440); RDW COEFFICIENT OF VARIATION 13.4 % (11.6-14.8); RED BLOOD COUNT 4.16 10^6/ul (4.20-5.40); WHITE BLOOD COUNT 8.17 K/ul (4.6-10.2)
[2023-03-26] MEDS: PRILOSEC PO SCH (05:39)
[2023-03-26] MEDS: LASIX TAB PO SCH (05:39)
[2023-03-26] MEDS: SYNTHROID PO SCH (05:39)
[2023-03-26 05:41] LABS: PROTHROMBIN TIME 10.1 SEC (9.3-11.0)
[2023-03-26 05:44] LABS: ALANINE AMINOTRANSFERASE 15.3 U/L (0-35); ALBUMIN 3.74 g/dL (3.5-5.0); ALKALINE PHOSPHATASE 89.8 U/L (53-141); ASPARTATE AMINO TRANSFERASE 18.4 U/L (14-36); BILIRUBIN,TOTAL 0.75 mg/dL (0.2-1.3); BLOOD UREA NITROGEN 11.3 mg/dL (7-17); CALCIUM 8.89 mg/dL (8.4-10.2); CARBON DIOXIDE 23.1 mmol/L (22-30.0); CHLORIDE 105.2 mmol/L (98-107); CREATININE 0.57 mg/dL (0.60-1.30); GLUCOSE 114.8 mg/dL (74-106); POTASSIUM 3.85 mmol/L (3.5-5.1); SODIUM 136.9 mmol/L (134.5-145); TOTAL PROTEIN 7.1 g/dL (6.3-8.2)
[2023-03-26] MEDS: SEROQUEL PO SCH (08:09)
[2023-03-26] MEDS: PROCARDIA XL PO SCH (08:09)
[2023-03-26] MEDS: MICRO-K CAP PO SCH (08:09)
[2023-03-26] MEDS: CALMOSEPTINE OINTMENT TP SCH (08:09)
[2023-03-26] MEDS: VASOTEC PO SCH (08:09)
[2023-03-26] MEDS: LOVENOX SUBCUT SCH (08:09)
[2023-03-26] MEDS: PROZAC PO SCH (08:09)
[2023-03-26 09:02] VITALS: RESP 18
--- NOTE | 2023-03-26 10:41 | DCSUM ---
Admission Date Admission Date: 03/24/23 Discharge Date Discharge Date: 03/26/23 Admission Diagnosis Admission Diagnosis: 1. Acute hypoxic respiratory failure in setting of PEs of right middle/lower lobe 2. Pulmonary emboli of right middle/lower lobe Discharge Diagnosis Discharge Diagnosis: 1. Acute hypoxic respiratory failure in setting of PEs of right middle/lower lobe - resolved 2. Pulmonary emboli of right middle/lower lobe 3. Dementia 4. Hypertension 5. Hyperlipidemia 6. GERD 7. Hypothyroidism 8. Lung nodules, right 9. Hypokalemia Hospital Provider Hospital Provider: BIMAL W[facility]ACK [facility] Care Physician Primary Care Physician: MANDY FRANCO Summary of History and Physical Summary of History and Physical: Patient is an 78 year old female with pmhx of dementia, hypothyroidism, hypertension, hyperlipidemia, gerd from home who presented for weakness. Patient history provided by daughter/POA. She's been declining since thanksgiving from a mobility standpoint. She then has seemed more weak than normal. Her mentation is at baseline. She has had a cough. She also has frequent UTIs. In the ER she was found to have right sided pulmonary emboli. No evidence of heart strain. UA not yet collected. Labs rather unremarkable. O2 sat 90%. Daughter initially wanted transfer but after discussing expected plan of care here she was agreeable to stay. Patient unable to answer any orientation questions appropriately and is unable to tell me why she is here. ROS limited by patient dementia, obtained from daughter. Hospital Course Subjective: Patient was treated with treatment dose lovenox. She initially required 2L but was weaned to room air and has been saturating well. PT/OT consult placed. Pt had a difficult time following direction and participating with therapy. Did not feel patient is an appropriate swingbed candidate, very limited by her dementia. Venous US negative for DVT. Discussed with daughter CT did show some nodules as well. Pulm referral initiated with [facility], they will call patient with an apt. Joyce checked novel agents for anticoagulation. Was able to start on xarelto with $0 copay coupon. F/u with pcp for further refills. Home health ordered as well. Daughter not interested in care home at this time. They have a good amount of help at home so far. Daughter in agreement with plan of care. Appearance: Pleasant, No Apparent Distress and Alert HEENT: MMM CVS: Other (RRR) Abdomen: Soft, Non-Tender and No Distention Respiratory: No Dyspnea Extremities: No Edema Vital Signs: Most Recent Vital Signs Temperature 97.2 F L 03/26/23 05:18 Temperature Source Oral 03/26/23 05:18 Temperature Source Infrared 03/24/23 10:51 Pulse Rate 74 03/26/23 05:18 Respiratory Rate 18 03/26/23 08:00 Blood Pressure 119/73 03/26/23 05:18 Blood Pressure Mean 88 03/26/23 05:18 Blood Pressure Left Arm 128/77 03/24/23 15:04 Blood Pressure Location Right Arm 03/26/23 05:18 Blood Pressure Position Supine 03/26/23 05:18 O2 Sat by Pulse Oximetry 100 03/26/23 05:18 Oxygen Delivery Method Room Air 03/26/23 10:00 Oxygen Flow Rate 1 03/25/23 13:33 Height 5 ft 4 in 03/24/23 15:04 Weight 175 lb 03/24/23 15:04 Telemetry Type Remote Telemetry 03/26/23 07:00 Telemetry Monitoring Continues 03/26/23 07:00 Telemetry Heart Rate 69 03/26/23 07:00 Telemetry SPO2 95 03/26/23 01:00 EKG [place] Interval 0.20 03/26/23 07:00 EKG QRS Interval 0.08 03/26/23 07:00 Telemetry Strip Reading SR 03/26/23 07:00 Imaging: EXAM: CTA CHEST WITH CONTRAST HISTORY: Hypoxia, smoker and cough COMPARISON: None TECHNIQUE: Multi-slice transaxial helical images are acquired through the chest according to an angiogram protocol. 3-D volume images are provided. All CT scans are performed using dose optimization techniques as appropriate to the performed exam and includes at least one of the following: Automated exposure control, adjustment of the mA and/or kV according to size, and the use of iterative reconstruction technique. CONTRAST: 100 mL Omnipaque-350 IV FINDINGS: There are intraluminal filling defects within lobar branches of the middle lobe and lobar to segmental branches of the right lower lobe. No other pulmonary emboli are appreciated. The heart is mildly enlarged. There is no evidence of right ventricular strain. No pericardial effusion. Trace right pleural fluid layers dependently. A left pleural fluid. There is a solid nodule in the right upper lobe with spiculated margins measuring 1.1 x 1.1 cm on series 9 image number 16. There is an additional solid nodule in the right upper lobe measuring 0.8 cm on image number 26. The dependent lungs are atelectatic. No acute infiltrates. Simple acquired renal cysts are noted. There is suggestion of a previous right partial posterior hepatectomy. The solid organs are otherwise normal in their visualized portions of the upper abdomen. No suspicious osteolytic or osteoblastic bone lesions. No acute bony abnormalities are evident. IMPRESSION: - Pulmonary emboli within lobar branches of the middle lobe and lobar/subsegmental branches of the right lower lobe. No right ventricular strain. - Two solid nodules in the right upper lobe measuring 1.1 cm and 0.8 cm respectively. Recommend correlation with a PET CT and/or biopsy. - Mild cardiomegaly. - No acute infiltrates. - Trace right pleural effusion. - Results discussed with Dr. Orr in the ER on 03/24/2023 at 1237 hours. EXAM: BILATERAL LOWER EXTREMITY DEEP VENOUS ULTRASOUND WITH DOPPLER IMAGING HISTORY: pain. TECHNIQUE: Maria-scale ultrasound with compression maneuvers and color and spectral Doppler ultrasound at rest and with augmentation of the veins was performed. Images were obtained and stored in a permanent archive. Color spectral Doppler performed. COMPARISON: None FINDINGS / IMPRESSION: No deep venous thrombosis (DVT) in the bilateral lower extremities. No superficial venous thrombosis (SVT) in the bilateral lower extremities at the levels examined. Lab Results Last 24 Hours: 03/26/23 05:08 WBC 8.17 RBC 4.16 L Hgb 11.8 L Hct 38.6 MCV 92.8 MCH 28.4 MCHC 30.6 L RDW Coeff of Noel 13.4 Plt Count 253 Immature Gran % (Auto) 0.2 Neut % (Auto) 63.0 Lymph % (Auto) 25.7 [place] % (Auto) 8.7 Eos % (Auto) 1.8 Baso % (Auto) 0.6 Neut # (Auto) 5.1 Lymph # (Auto) 2.1 [place] # (Auto) 0.7 Eos # (Auto) 0.2 Baso # (Auto) 0.1 Immature Gran # (Auto) 0.0 PT 10.1 INR 0.97 Sodium 136.9 Potassium 3.85 Chloride 105.2 Carbon Dioxide 23.1 Anion Gap 12.45 BUN 11.3 Creatinine 0.57 L Estimated GFR (MDRD) 102.00 BUN/Creatinine Ratio 19.82 Glucose 114.8 H Calcium 8.89 Total Bilirubin 0.75 AST 18.4 ALT 15.3 Alkaline Phosphatase 89.8 Total Protein 7.10 Albumin 3.74 Globulin 3.36 Albumin/Globulin Ratio 1.11 Discharge Instructions Discharge Planning: Discharge Planning > [address] Payam Stapleton. Discharge Medications: Medications at Discharge (Home Meds & RX) enalapril maleate 5 mg tablet 5 mg PO DAILY 10/20/14 levothyroxine 50 mcg tablet (Synthroid) 50 mcg PO QDAC 10/20/14 nifedipine 60 mg tablet,extended release 24 hr (Procardia XL) 30 mg PO DAILY 10/20/14 simvastatin 40 mg tablet 40 mg PO BEDTIME 10/20/14 fluoxetine 10 mg capsule (Prozac) 20 mg PO QDAY 06/12/22 ergocalciferol (vitamin D2) 1,250 mcg (50,000 unit) capsule (Vitamin D2) 1,250 mcg PO DAILY 10/08/22 omeprazole 20 mg capsule,delayed release 20 mg PO DAILY 10/08/22 quetiapine 25 mg tablet 25 mg PO DAILY 10/08/22 furosemide 20 mg tablet 20 mg PO DAILY 03/24/23 lorazepam 0.5 mg tablet 0.25 mg PO BID PRN agitation 03/24/23 memantine 28 mg capsule sprinkle,extended release 24hr 28 mg PO DAILY 03/24/23 potassium chloride 10 mEq tablet,extended release 10 meq PO BID 03/24/23 rivaroxaban 15 mg (42)-20 mg (9) tablets in a starter pack (Xarelto DVT-PE Treatment 30-Day Starter) See Rx Instructions PO .COMPLEX #51 ea 03/26/23 Discharge Plan Discharge Discharge Orders: Discharge Patient (ONCE); Ordered 03/26/23 Ordered By: BIMAL WOMACK Activity Restrictions/Additional Instructions: DISCHARGE TO HOME HOME HEALTH ORDERED DX: PULMONARY EMBOLI FOLLOW UP ON LUNG NODULES OUTPATIENT DIET: HEART HEALTHY ACTIVITY: TOLERATED RETURN WITH WORSENING SYMPTOMS AT YOUR REQUEST A REFERRAL HAS BEEN SENT TO [facility], THEY WILL BE IN CONTACT WITH YOU TO SCHEDULE AN APPOINTMENT. SHOULD YOU NEED TO CONTACT THEM, THEIR NUMBER IS [phone]. Instructions: Pulmonary Embolism (GEN) Patient Disposition: HOME WITH FAMILY CARE Prescriptions: New Xarelto DVT-PE Treat 30d Start 15 mg (42)- 20 mg (9) tablets,dose pack See Rx Instructions .ROUTE .COMPLEX Qty: 51 0RF Rx Instructions: take one-15 mg tablet twice daily for 21 days, then one-20 mg tablet once daily; must take with meal/food Continued enalapril maleate 5 MG tablet 5 mg PO DAILY Patient Comments: simvastatin 40 MG tablet 40 mg PO BEDTIME nifedipine [Procardia XL] 60 MG tablet extended release 24hr 30 mg PO DAILY levothyroxine [Synthroid] 50 MCG tablet 50 mcg PO QDAC potassium chloride 10 mEq tablet extended release 10 meq PO BID memantine 28 mg capsule,sprinkle,ER 24hr 28 mg PO DAILY furosemide 20 mg tablet 20 mg PO DAILY lorazepam 0.5 mg tablet 0.25 mg PO BID PRN (Reason: agitation) ergocalciferol (vitamin D2) [Vitamin D2] 1,250 mcg (50,000 unit) capsule 1,250 mcg PO DAILY quetiapine 25 mg tablet 25 mg PO DAILY omeprazole 20 mg capsule,delayed release(DR/EC) 20 mg PO DAILY fluoxetine [Prozac] 10 mg capsule 20 mg PO QDAY Did you review [place] [employer] for ALL controlled substances?: Not Applicable Discussed opioids are addictive and Narcan is available by prescription or from pharmacy.: No Condition: Stable Referrals: MANDY FRANCO MD [Primary Care Provider] - 5-7 Days (dr Franco's office will be in touch with you to schedule. If you do not hear from them please contact their office. )
== END 2023-03-26 11:10 | disposition home or self-care (01) ==
LOC: ED 10:37 → MEDSURG B 10:37
PROVIDERS: ADMIT Hospitalist; ATTEND Physician Assistant
DX: R60.0 Localized edema; F03.90 Unspecified dementia, unspecified severity, without behavioral disturbance, psychotic disturbance, mood disturbance, and anxiety; Z20.822 Contact with and (suspected) exposure to COVID-19; N28.1 Cyst of kidney, acquired; E87.6 Hypokalemia; R53.1 Weakness; E03.9 Hypothyroidism, unspecified; Z87.440 Personal history of urinary (tract) infections; R91.1 Solitary pulmonary nodule; I26.94 Multiple subsegmental thrombotic pulmonary emboli without acute cor pulmonale; I10 Essential (primary) hypertension; J96.01 Acute respiratory failure with hypoxia; E78.5 Hyperlipidemia, unspecified; K21.9 Gastro-esophageal reflux disease without esophagitis; J91.8 Pleural effusion in other conditions classified elsewhere

== ENCOUNTER 2023-11-18 10:48 | Inpatient (IN) ==
[2023-11-18 11:25] LABS: BASOPHILS % (AUTO) 0.3 % (0.0-3.0); EOSINOPHILS # (AUTO) 0.2 K/ul (0.0-0.7); EOSINOPHILS % (AUTO) 1.7 % (0.0-7.0); HEMOGLOBIN 15.1 g/dl (12.0-16.0); IMMATURE GRANULOCYTE % (AUTO) 0.3 % (0.0-5.0); LYMPHOCYTES # (AUTO) 1.8 K/uL (0.60-3.4); LYMPHOCYTES % (AUTO) 20.1 (10.0-50.0); MEAN CORPUSCULAR HEMOGLOBIN 29.7 pg (27.0-31.0); MEAN CORPUSCULAR HGB CONC 31.5 (31.8-35.4); MEAN CORPUSCULAR VOLUME 94.3 fl (81.0-99.0); MONOCYTES # (AUTO) 0.6 K/uL (0.4-2.0); MONOCYTES % (AUTO) 6.5 (0-10); NEUTROPHILS # (AUTO) 6.2 K/ul (2.0-6.9); NEUTROPHILS % (AUTO) 71.1 % (42.2-75.2); PLATELET COUNT 306 10^3/uL (140-440); RDW COEFFICIENT OF VARIATION 13.3 % (11.6-14.8); RED BLOOD COUNT 5.09 10^6/ul (4.20-5.40); WHITE BLOOD COUNT 8.72 K/ul (4.6-10.2)
[2023-11-18] MEDS: ATIVAN IVP STA (11:37)
[2023-11-18] MEDS: VERSED IVP STA (11:39)
[2023-11-18 11:47] LABS: PARTIAL THROMBOPLASTIN TIME 36.1 SEC (23.9-40.0); PROTHROMBIN TIME 14.9 SEC (9.3-11.0)
[2023-11-18 11:48] LABS: ALANINE AMINOTRANSFERASE 19.2 U/L (0-35); ALBUMIN 4.68 g/dL (3.5-5.0); ALKALINE PHOSPHATASE 105.4 U/L (53-141); ASPARTATE AMINO TRANSFERASE 25.6 U/L (14-36); BILIRUBIN,TOTAL 0.98 mg/dL (0.2-1.3); BLOOD UREA NITROGEN 9.3 mg/dL (7-17); CALCIUM 9.86 mg/dL (8.4-10.2); CARBON DIOXIDE 20.4 mmol/L (22-30.0); CHLORIDE 105.8 mmol/L (98-107); CREATININE 0.68 mg/dL (0.60-1.30); GLUCOSE 120.5 mg/dL (74-106); POTASSIUM 3.74 mmol/L (3.5-5.1); SODIUM 141.6 mmol/L (134.5-145); TOTAL PROTEIN 8.02 g/dL (6.3-8.2)
[2023-11-18 11:59] LABS: TROPONIN I < 0.012 ng/ml (0.0000-0.120)
--- NOTE | 2023-11-18 12:00 | DI ---
EXAM: CHEST RADIOGRAPH (1 VIEW) TECHNIQUE: Frontal Chest Radiograph. HISTORY: Chest pain short of breath COMPARISON: 06/25/2023 FINDINGS: Lines, Tubes, Devices: None Lungs and Pleura: No focal consolidation. No pleural effusion. No pneumothorax. No pulmonary edema . Cardiomediastinum: Normal cardiomediastinal silhouette. Atherosclerotic aortic calcifications. Bones/Soft Tissues: No acute osseous abnormality. Soft tissue calcifications noted around the left g lenohumeral joint. This may be calcific tendonitis or bursitis.. Upper Abdomen: Within normal limits. IMPRESSION: No acute radiographic abnormality 2. Calcific bursitis or tendonitis in the left shoulder.
[2023-11-18 12:03] LABS: MOLECULAR FLU A NEGATIVE BY NAAT (NEGATIVE); MOLECULAR FLU B NEGATIVE BY NAAT (NEGATIVE); RSV MOLECULAR NEGATIVE BY NAAT (NEGATIVE); SARS COV-2 RNA RAPID NAAT NEGATIVE (NEGATIVE)
[2023-11-18 12:07] LABS: BILIRUBIN,URINE Negative (NEGATIVE); CLARITY,URINE Cloudy (CLEAR); COLOR,URINE Yellow (YELLOW); GLUCOSE, URINE (UA) Negative (NEGATIVE); KETONES,URINE Negative (NEGATIVE); LEUKOCYTE ESTERASE ,URINE Negative (NEGATIVE); NITRITE,URINE Negative (NEGATIVE); PROTEIN,URINE Negative (NEGATIVE); URINE, BLOOD Negative (NEGATIVE); UROBILINOGEN,URINE 0.2 (0.2)
[2023-11-18 12:12] LABS: BACTERIA,URINE 3+ (NOT PRESENT); HYALINE CASTS, URINE 0-2 (NOT PRESENT); MUCUS,URINE TRACE (NOT PRESENT)
[2023-11-18] MEDS: VANCOMYCIN 1 GRAM/200 ML PREMIX 1 GM/200 ML BAG IV ONE (12:17)
[2023-11-18] MEDS: PHARM CONSULT:VANCOMYCIN IV ONE TIME ORDER IV (12:17)
--- NOTE | 2023-11-18 13:28 | PCM ---
Date of Service Date Seen by Provider: 11/18/23 Time Seen by Provider: 14:00 Admit Day/Time Admission Date: 11/18/23 Admission Time: 13:25 Reason for Admission Chief Complaint: HYPOXIA 2ND TO BENZO, [facility]TI[facility] Hospital Provider [facility] Provider: Bimal Womack PA-C, [facility] Primary Care Physician Primary Care Physician: MANDY GONZÁLES History of Present Illness History of Present Illness: Patient is an 78 year old female from [facility] who presented to ER with worsening confusion and UTI. Daughter Jessie provided history. She states that patient has not been herself for past 2-3 days, has been more confused and agitated. She states she has been weaker than her normal but this has been ongoing last several weeks since a mental health admission in [place]. She has hx of recurrent UTIs. Overall labs unremarkable. However a urine culture from 11/15 showed MRSA. Vanc given in ER. Pt was given a benzo to help calm her down and this did cause her to desat as well. 2L oxygen has been placed and patient has been since stable. Admitted to med surg. Case Discussed With Case Discussed With: Patient's case was discussed with the ER Physicians, Dr. Anderson. [facility] Social History Passive smoking exposure: No Allergies Allergies Allergy/AdvReac Type Severity Reaction Status Date / Time amoxicillin trihydrate AdvReac Nausea Verified 11/18/23 11:03 [From Augmentin] codeine AdvReac Nausea Verified 11/18/23 11:03 potassium clavulanate AdvReac Nausea Verified 11/18/23 11:03 [From Augmentin] Current Medications Home Medications levothyroxine 50 mcg tablet (Synthroid) 50 mcg PO QDAC 10/20/14 [History Confirmed 11/18/23 Last Taken Unknown] nifedipine 60 mg tablet,extended release 24 hr (Procardia XL) 30 mg PO DAILY 10/20/14 [History Confirmed 11/18/23 Last Taken Unknown] simvastatin 40 mg tablet 40 mg PO BEDTIME 10/20/14 [History Confirmed 11/18/23 Last Taken Unknown] fluoxetine 10 mg capsule (Prozac) 20 mg PO QDAY 06/12/22 [History Confirmed 11/18/23 Last Taken Unknown] omeprazole 20 mg capsule,delayed release 20 mg PO DAILY 10/08/22 [History Confirmed 11/18/23 Last Taken Unknown] quetiapine 25 mg tablet 25 mg PO BEDTIME 10/08/22 [History Confirmed 11/18/23 Last Taken Unknown] furosemide 20 mg tablet 20 mg PO DAILY 03/24/23 [History Confirmed 11/18/23 Last Taken Unknown] memantine 28 mg capsule sprinkle,extended release 24hr 28 mg PO DAILY 03/24/23 [History Confirmed 11/18/23 Last Taken Unknown] potassium chloride 10 mEq tablet,extended release 20 meq PO BID 03/24/23 [History Confirmed 11/18/23 Last Taken Unknown] Lactobacillus 1 cap PO DAILY 11/18/23 [History Confirmed 11/18/23 Last Taken Unknown] bisacodyl 10 mg rectal suppository 10 mg AR DAILY PRN constipation 11/18/23 [History Confirmed 11/18/23 Last Taken Unknown] buspirone 5 mg tablet 5 mg PO 2XD 11/18/23 [History Confirmed 11/18/23 Last Taken Unknown] donepezil 10 mg tablet 10 mg PO DAILY 11/18/23 [History Confirmed 11/18/23 Last Taken Unknown] fluoxetine 10 mg tablet 10 mg PO DAILY 11/18/23 [History Confirmed 11/18/23 Last Taken Unknown] lorazepam 0.5 mg tablet 0.5 mg PO Q12H PRN anxiety 11/18/23 [History Confirmed 11/18/23 Last Taken Unknown] magnesium hydroxide 400 mg/5 mL oral suspension (Milk of Magnesia) 30 ml PO DAILY PRN constipation 11/18/23 [History Confirmed 11/18/23 Last Taken Unknown] multivitamin (Daily Multi-Vitamin tablet) 1 tab PO DAILY 11/18/23 [History Confirmed 11/18/23 Last Taken Unknown] rivaroxaban 20 mg tablet (Xarelto) 20 mg PO DAILY 11/18/23 [History Confirmed 11/18/23 Last Taken Unknown] tamsulosin 0.4 mg capsule 0.4 mg PO DAILY 11/18/23 [History Confirmed 11/18/23 Last Taken Unknown] zinc oxide 10 % topical cream (Secura Protective (zinc oxide)) 1 applic topical TID 11/18/23 [History Confirmed 11/18/23 Last Taken Unknown] Home Acetaminophen (Acetaminophen 325 Mg Tablet) 650 mg PO Q4H PRN PRN Reason: Mild Pain VANCOMYCIN/WATER FOR INJ (PEG) (Vancomycin 1 Gram/200 Ml Premix) 1 gm in 200 mls @ 200 mls/hr IV Q12HR ROSE MARIE Stop: 11/21/23 20:59 Olanzapine (Olanzapine 10 Mg Vial) 2.5 mg IM Q6HR PRN PRN Reason: Agitation Ondansetron HCl (Ondansetron Hcl/Pf 4 Mg/2 Ml Sdv) 4 mg IVP Q6H PRN PRN Reason: Nausea / Vomiting Discontinued Medications VANCOMYCIN/WATER FOR INJ (PEG) (Vancomycin 1 Gram/200 Ml Premix) 1 gm in 200 mls @ 200 mls/hr IV ONCE ONE Stop: 11/18/23 12:40 Last Admin: 11/18/23 12:17 Dose: 200 mls/hr Lorazepam (Lorazepam Inj 2 Mg/Ml Vial) 1 mg IVP ONCE STA Stop: 11/18/23 11:26 Last Admin: 11/18/23 11:37 Dose: 1 mg Midazolam HCl (Midazolam Hcl Inj 5 Mg/Ml Vial) 2.5 mg IVP ONCE STA Stop: 11/18/23 11:06 Last Admin: 11/18/23 11:39 Dose: Not Given Non-Formulary Medication (Pharm Consult: Vancomycin Iv One Time Order) 1 each IV ONCE ONE Stop: 11/18/23 11:42 Last Admin: 11/18/23 12:17 Dose: 1 each Opioid Naive vs. Tolerant Does Patient Take Opioids?: No Is Patient Opioid Naive?: Yes What is Opioid Naive?: *Opioid Naive implies the patient is not already taking opioids or not chronically receiving opioids on a daily basis. *PRN dosing is not "usually" associated with tolerance. *Patients are at higher risk of over-sedation and aspiration. Is Patient Opioid Tolerant?: No What is Opioid Tolerant?: *Opioid Tolerance implies less than the expected response to an opioid. *Acquired tolerance is defined by the patient taking 60mg of oral morphine daily (or equianalgesic dose of another opioid) for 1 week or more. *Often associated with chronic pain. *May take more than usual dose to achieve desired pain control. Review of Systems Constitutional: Denies Fever Cardiovascular: Denies Chest pain Respiratory: Denies Cough or Shortness of air Genitourinary: Reports Other (+abnormal urine culture) Neurological: Reports Other (+worsening behaviors ) Psychiatric: Reports Anxiety Physical examination Most Recent Vital Signs: Most Recent Vital Signs Temperature 98.0 F 11/18/23 10:53 Temperature Source Infrared 11/18/23 10:53 Pulse Rate 89 11/18/23 10:53 Respiratory Rate 20 11/18/23 10:53 Blood Pressure 131/72 11/18/23 10:53 O2 Sat by Pulse Oximetry 95 11/18/23 10:53 Height 5 ft 8 in 11/18/23 10:53 Weight 170 lb 10.205 oz 11/18/23 10:53 Telemetry Heart Rate 69 03/26/23 07:00 Telemetry SPO2 95 03/26/23 01:00 Appearance: Positive No Apparent Distress and Other (+sleeping, sometimes waking up to answer questions but does not answer appropriately. ) Skin: Positive [place], Warm and Good Turgor; Negative Jaundice HEENT: Positive Normocephalic and Atraumatic Neck: Positive Supple and Midline Trachea Chest/Lungs: Positive Clear to Auscultation Bilaterally; Negative Rales, Rhonci or Wheezes Heart: Positive RRR GI/: Positive Soft, Nontender, Bowel Sounds Normal and No Distention Neurological: Positive Other (+unable to assess at this time ) Psychiatric: Negative Oriented x4, Good Long-Term Recall or Normal Insight Labs This Visit Labs This Visit: Labs This Visit 11/18/23 11/18/23 11/18/23 11:19 11:43 12:00 WBC 8.72 RBC 5.09 Hgb 15.1 Hct 48.0 H MCV 94.3 MCH 29.7 MCHC 31.5 L RDW Coeff of Noel 13.3 Plt Count 306 Immature Gran % (Auto) 0.3 Neut % (Auto) 71.1 Lymph % (Auto) 20.1 [place] % (Auto) 6.5 Eos % (Auto) 1.7 Baso % (Auto) 0.3 Neut # (Auto) 6.2 Lymph # (Auto) 1.8 [place] # (Auto) 0.6 Eos # (Auto) 0.2 Baso # (Auto) 0.0 Immature Gran # (Auto) 0.0 PT 14.9 H INR 1.46 APTT 36.1 Sodium 141.6 Potassium 3.74 Chloride 105.8 Carbon Dioxide 20.4 L Anion Gap 19.14 BUN 9.3 Creatinine 0.68 Estimated GFR (MDRD) 83.00 BUN/Creatinine Ratio 13.67 Glucose 120.5 H Calcium 9.86 Total Bilirubin 0.98 AST 25.6 ALT 19.2 Alkaline Phosphatase 105.4 Troponin I < 0.012 Total Protein 8.02 Albumin 4.68 Globulin 3.34 Albumin/Globulin Ratio 1.40 Urine Color Yellow Urine Clarity Cloudy Urine pH 7.0 Ur Specific [place] 1.020 Urine Protein Negative Urine Glucose (UA) Negative Urine Ketones Negative Urine Blood Negative Urine Nitrite Negative Urine Bilirubin Negative Urine Urobilinogen 0.2 Ur Leukocyte Esterase Negative Urine Microscopic WBC 5-10 Ur Squamous Epith Cells 2-5 Urine Bacteria 3+ Hyaline Casts 0-2 Urine Mucus Trace Influ A Molecular Assay Negative by naat Influ B Molecular Assay Negative by naat RSV Antigen Negative by naat SARS CoV-2 RNA Rapid DONATO Negative Imaging Imaging: EXAM: CHEST RADIOGRAPH (1 VIEW) TECHNIQUE: Frontal Chest Radiograph. HISTORY: Chest pain short of breath COMPARISON: 06/25/2023 FINDINGS: Lines, Tubes, Devices: None Lungs and Pleura: No focal consolidation. No pleural effusion. No pneumothorax. No pulmonary edema. Cardiomediastinum: Normal cardiomediastinal silhouette. Atherosclerotic aortic calcifications. Bones/Soft Tissues: No acute osseous abnormality. Soft tissue calcifications noted around the left glenohumeral joint. This may be calcific tendonitis or bursitis.. Upper Abdomen: Within normal limits. IMPRESSION: No acute radiographic abnormality 2. Calcific bursitis or tendonitis in the left shoulder. Review Statement Review Statement: I have independently reviewed and interpreted the labs/EKGs/imaging that were ordered by the ER provider. I have reviewed all outside records that are available currently in our EMR including imaging/notes/labs from previous visits. Plan Plan: 1. Resistant UTI in setting of MRSA - Cont vanc. Will likely transition to linezolid, however this will require holding some psych meds. 2. Dementia - Cont home meds, zyprexa prn. Daughter admits pt will likely need "something to calm her down at night". 3. Hypertension - Cont home meds 4. Hyperlipidemia - Cont home meds 5. Hypothyroidism -Cont home meds. Recent TSH in 10/21 was normal. DVT Prophylaxis: Xarelto Time Spent: Greater than 80 minutes spent with patient, 50% of the time spent with this patient was devoted to counseling and coordination of care. [facility]in minutes spent discussing advance care planning. Admit to: Obs Discussed Plan of Care with Dr. Payam Stapleton.
[2023-11-18] MEDS ORDERED: TYLENOL PO PRN (13:31)
[2023-11-18] MEDS ORDERED: ZOFRAN 4 MG/2 ML IVP PRN (13:31)
--- NOTE | 2023-11-18 13:58 | ED.PDOC ---
General ED Provider: Dr. TEJAS TOWNSEND DO Chief Complaint: Urinary Problem Stated Complaint: 78-year-old female presents to the ER from a local [facility] after she has been acting out, yelling and tearful. She apparently had a urinalysis done that was reportedly MRSA that was otherwise not treated. She has been having symptoms for at least 4 to 5 days. Patient has a history of dementia and Alzheimer's but is usually conversational. Her daughter is present at bedside and states that her mother's been acting very differently. No reported fever, complaints of chest pain, shortness of breath, abdominal pain, diarrhea or constipation. Time Seen by Provider: 11/18/23 10:55 Information Source: Patient Primary Care Provider: MANDY GONZÁLES Nursing and Triage Documentation Reviewed and Agree: Yes What is Opioid Naive?: *Opioid Naive implies the patient is not already taking opioids or not chronically receiving opioids on a daily basis. *PRN dosing is not "usually" associated with tolerance. *Patients are at higher risk of over-sedation and aspiration. What is Opioid Tolerant?: *Opioid Tolerance implies less than the expected response to an opioid. *Acquired tolerance is defined by the patient taking 60mg of oral morphine daily (or equianalgesic dose of another opioid) for 1 week or more. *Often associated with chronic pain. *May take more than usual dose to achieve desired pain control. Review of Systems Review Of Systems Constitutional: Reports No symptoms All Other Systems: Reviewed and Negative [facility] Social History Passive smoking exposure: No Female Reproductive History Menstrual Hx Hysterectomy: Yes Hx Tubal Ligation: No Physical Exam Physical Exam Appearance: Reports Well-appearing and Well-nourished ENT: Reports Oropharynx normal Neck: Supple Respiratory: Reports Airway patent, Breath sounds clear, Breath sounds equal and Breath sounds diminished Cardiovascular: Reports RRR and Pulses normal GI/: Reports Soft and Nontender Musculoskeletal: Reports Normal strength and ROM intact Skin: Reports Warm, Dry and Normal color Neurological: Reports Sensation intact, Motor intact, Alert and Disoriented; Denies Oriented Psychiatric: Reports Anxious Interpretation EKG Interpretation EKG Interpretation By: ED Physician Time of EKG #1: 11:21 Rate: Normal Rhythm: Sinus Ectopy: None [place]: NL ST Segment: Normal Interpretation: No acute ischemia Course Course 11/18/23 11:19 11/18/23 11:19 Orders, Labs, Meds: Lab Review 11/18/23 11/18/23 11/18/23 11:19 11:43 12:00 WBC 8.72 RBC 5.09 Hgb 15.1 Hct 48.0 H MCV 94.3 MCH 29.7 MCHC 31.5 L RDW Coeff of Noel 13.3 Plt Count 306 Immature Gran % (Auto) 0.3 Neut % (Auto) 71.1 Lymph % (Auto) 20.1 [place] % (Auto) 6.5 Eos % (Auto) 1.7 Baso % (Auto) 0.3 Neut # (Auto) 6.2 Lymph # (Auto) 1.8 [place] # (Auto) 0.6 Eos # (Auto) 0.2 Baso # (Auto) 0.0 Immature Gran # (Auto) 0.0 PT 14.9 H INR 1.46 APTT 36.1 Sodium 141.6 Potassium 3.74 Chloride 105.8 Carbon Dioxide 20.4 L Anion Gap 19.14 BUN 9.3 Creatinine 0.68 Estimated GFR (MDRD) 83.00 BUN/Creatinine Ratio 13.67 Glucose 120.5 H Calcium 9.86 Total Bilirubin 0.98 AST 25.6 ALT 19.2 Alkaline Phosphatase 105.4 Troponin I < 0.012 Total Protein 8.02 Albumin 4.68 Globulin 3.34 Albumin/Globulin Ratio 1.40 Urine Color Yellow Urine Clarity Cloudy Urine pH 7.0 Ur Specific [place] 1.020 Urine Protein Negative Urine Glucose (UA) Negative Urine Ketones Negative Urine Blood Negative Urine Nitrite Negative Urine Bilirubin Negative Urine Urobilinogen 0.2 Ur Leukocyte Esterase Negative Urine Microscopic WBC 5-10 Ur Squamous Epith Cells 2-5 Urine Bacteria 3+ Hyaline Casts 0-2 Urine Mucus Trace Influ A Molecular Assay Negative by naat Influ B Molecular Assay Negative by naat RSV Antigen Negative by naat SARS CoV-2 RNA Rapid DONATO Negative Orders Category Date Time Status ADMIT OBSERVATION [PLACE PATIENT OBSERVATION] .TO ADMISSION 11/18/23 13:25 Active MEDSURG (MONITORED BED) EKG-(ED ONLY) Stat CARDIO 11/18/23 11:04 Completed ACTIVITY .Up With Assistance CARE 11/18/23 13:31 Active INTAKE & OUTPUT Q8HR CARE 11/18/23 13:31 Active TELEMETRY MONITORING TELE CARE 11/18/23 13:25 Active VITAL SIGNS Q8HR CARE 11/18/23 13:31 Active CARDIAC DIET DIETARY 11/18/23 Dinner Ordered Mathews [ED CATHETER INSERTION AND CARE] .ONCE EMERGENCY 11/18/23 11:04 Active BLOOD CULTURE (ED ONLY) Stat LAB 11/18/23 11:19 Received CBC W/ AUTO DIFF DAILY@0600 LAB 11/19/23 06:00 Ordered CBC W/ AUTO DIFF DAILY@0600 LAB 11/20/23 06:00 Ordered CBC W/ AUTO DIFF Stat LAB 11/18/23 11:19 Completed CMP [COMPREHENSIVE METABOLIC PANEL] Stat LAB 11/18/23 11:19 Completed COMPREHENSIVE METABOLIC PANEL DAILY@0600 LAB 11/19/23 06:00 Ordered COMPREHENSIVE METABOLIC PANEL DAILY@0600 LAB 11/20/23 06:00 Ordered COVID [SARS COV-2 RNA RAPID DONATO] Stat LAB 11/18/23 11:43 Completed FLU A & B MOLECULAR [FLU A/B MOLECULAR] Stat LAB 11/18/23 11:43 Completed PT WITH INR Stat LAB 11/18/23 11:19 Completed PTT [PARTIAL THROMBOPLASTIN TIME] Stat LAB 11/18/23 11:19 Completed RSV Stat LAB 11/18/23 11:43 Completed TROPONIN I Stat LAB 11/18/23 11:19 Completed URINALYSIS C & S IF INDICATED Stat LAB 11/18/23 12:00 Completed URINE CULTURE Stat LAB 11/18/23 12:00 Received Acetaminophen [Tylenol] Meds 11/18/23 13:31 Active 650 mg PO Q4H PRN Lorazepam [Ativan] Meds 11/18/23 11:25 Discontinued 1 mg IVP ONCE STA Midazolam HCl Inj [Versed] Meds 11/18/23 11:05 Discontinued 2.5 mg IVP ONCE STA Ondansetron HCl/Pf [Zofran 4 mg/2 ml] Meds 11/18/23 13:31 Active 4 mg IVP Q6H PRN Pharm Consult [Pharm Consult:Vancomycin IV One Time Meds 11/18/23 11:41 Discontinued Order] 1 each IV ONCE ONE Vancomycin/Water For Inj (Peg) [Vancomycin 1 Gram/200 Meds 11/18/23 11:41 Discontinued ml Premix] 1 gm in 200 ml IV ONCE Vancomycin/Water For Inj (Peg) [Vancomycin 1 Gram/200 Meds 11/18/23 21:00 Active ml Premix] 1 gm in 200 ml IV Q12HR CHEST, 1V AP ONLY Stat RADS 11/18/23 11:04 Completed Medications Generic Name Dose Route Start Last Admin Trade Name Freq PRN Reason Stop Dose Admin Acetaminophen 650 mg 11/18/23 13:31 Acetaminophen 325 Mg Tablet PO Q4H PRN Mild Pain VANCOMYCIN/WATER FOR INJ (PEG) 1 gm in 200 mls @ 200 mls/hr 11/18/23 21:00 Vancomycin 1 Gram/200 Ml Premix IV 11/21/23 20:59 Q12HR ROSE MARIE Ondansetron HCl 4 mg 11/18/23 13:31 Ondansetron Hcl/Pf 4 Mg/2 Ml Sdv IVP Q6H PRN Nausea / Vomiting Discontinued Medications Generic Name Dose Route Start Last Admin Trade Name Freq PRN Reason Stop Dose Admin VANCOMYCIN/WATER FOR INJ (PEG) 1 gm in 200 mls @ 200 mls/hr 11/18/23 11:41 11/18/23 12:17 Vancomycin 1 Gram/200 Ml Premix IV 11/18/23 12:40 200 mls/hr ONCE ONE Administration Lorazepam 1 mg 11/18/23 11:25 11/18/23 11:37 Lorazepam Inj 2 Mg/Ml Vial IVP 11/18/23 11:26 1 mg ONCE STA Administration Midazolam HCl 2.5 mg 11/18/23 11:05 11/18/23 11:39 Midazolam Hcl Inj 5 Mg/Ml Vial IVP 11/18/23 11:06 Not Given ONCE STA Non-Formulary Medication 1 each 11/18/23 11:41 11/18/23 12:17 Pharm Consult: Vancomycin Iv One Time Order IV 11/18/23 11:42 1 each ONCE ONE Administration Vital Signs: Temp Pulse Resp BP Pulse Ox 11/18/23 10:53 98.0 F 89 20 131/72 95 Discharge Plan Discharge Patient Disposition: PLACED OBSERVATION Discharge Problem: Acute UTI, Altered mental status Did you review [place] [employer] for ALL controlled substances?: Not Applicable ED Provider: TEJAS TOWNSEND Condition: Stable Physician Progress Note: 78-year-old female presents to the ER with what sound like altered mental status. This could be endorgan damage from a UTI that was reported present on the . She is afebrile nontoxic no acute distress. Vital signs are stable. She is very anxious and tearful on presentation and given how fearful she appears, I did give a benzodiazepine to help out with the situation. This was agreed upon with the daughter who is present at bedside who is an active member of her care. This resulted in sedation greater than I anticipated and the patient was placed on a nasal cannula but remained stable. Her urinalysis is actually clear here today but I did review her urine culture from before. There is Staph aureus but not MRSA. It is pansensitive. Although I would not normally have admitted a urinary tract infection like this and I do not have other obvious signs and her workup for her altered mental status, she did respond well to the benzo although the dose was a little much for her, so I have asked to observe the patient to hospital to ensure that she has no downward decline. I treated her with antibiotics otherwise and her laboratory workup was otherwise not consistent with sepsis.
[2023-11-18] MEDS ORDERED: ZYPREXA IM PRN (14:06)
[2023-11-18 15:30] VITALS: BMI 25.8
[2023-11-18] MEDS ORDERED: MILK OF MAGNESIA PO PRN (15:51)
[2023-11-18] MEDS ORDERED: DULCOLAX RC PRN (15:51)
[2023-11-18] MEDS: K-DUR PO SCH (18:13)
[2023-11-18] MEDS: ATIVAN PO PRN (18:20)
[2023-11-18] MEDS: NAMENDA PO SCH (20:18)
[2023-11-18] MEDS: SEROQUEL PO SCH (20:18)
[2023-11-18] MEDS: ZOCOR PO SCH (20:18)
[2023-11-18] MEDS: VANCOMYCIN 1 GRAM/200 ML PREMIX 1 GM/200 ML BAG IV SCH (20:19)
[2023-11-18] MEDS: ZINC OXIDE TP SCH (20:19)
[2023-11-18] MEDS: BUSPAR PO SCH (20:19)
[2023-11-18] MEDS ORDERED: MICRO-K CAP PO SCH (21:00)
[2023-11-18] MEDS ORDERED: ZINC OXIDE 10% TP SCH (21:00)
[2023-11-19] MEDS: LASIX TAB PO SCH (05:11)
[2023-11-19] MEDS: PRILOSEC PO SCH (05:11)
[2023-11-19] MEDS: SYNTHROID PO SCH (05:11)
[2023-11-19 05:17] LABS: BASOPHILS % (AUTO) 0.6 % (0.0-3.0); EOSINOPHILS # (AUTO) 0.3 K/ul (0.0-0.7); EOSINOPHILS % (AUTO) 4.1 % (0.0-7.0); HEMATOCRIT 43.1 % (37.0-47.0); HEMOGLOBIN 13.5 g/dl (12.0-16.0); IMMATURE GRANULOCYTE % (AUTO) 0.4 % (0.0-5.0); LYMPHOCYTES # (AUTO) 1.6 K/uL (0.60-3.4); LYMPHOCYTES % (AUTO) 23.4 (10.0-50.0); MEAN CORPUSCULAR HEMOGLOBIN 30.1 pg (27.0-31.0); MEAN CORPUSCULAR HGB CONC 31.3 (31.8-35.4); MONOCYTES # (AUTO) 0.6 K/uL (0.4-2.0); MONOCYTES % (AUTO) 9.4 (0-10); NEUTROPHILS # (AUTO) 4.2 K/ul (2.0-6.9); NEUTROPHILS % (AUTO) 62.1 % (42.2-75.2); PLATELET COUNT 282 10^3/uL (140-440); RDW COEFFICIENT OF VARIATION 13.5 % (11.6-14.8); RED BLOOD COUNT 4.49 10^6/ul (4.20-5.40); WHITE BLOOD COUNT 6.83 K/ul (4.6-10.2)
[2023-11-19 05:20] LABS: ALANINE AMINOTRANSFERASE 14.5 U/L (0-35); ALBUMIN 3.79 g/dL (3.5-5.0); ALKALINE PHOSPHATASE 89.2 U/L (53-141); ASPARTATE AMINO TRANSFERASE 24.9 U/L (14-36); BILIRUBIN,TOTAL 0.73 mg/dL (0.2-1.3); BLOOD UREA NITROGEN 7.8 mg/dL (7-17); CALCIUM 9.04 mg/dL (8.4-10.2); CARBON DIOXIDE 25.7 mmol/L (22-30.0); CHLORIDE 108.7 mmol/L (98-107); CREATININE 0.68 mg/dL (0.60-1.30); GLUCOSE 90.2 mg/dL (74-106); POTASSIUM 4.02 mmol/L (3.5-5.1); SODIUM 140.6 mmol/L (134.5-145); TOTAL PROTEIN 6.43 g/dL (6.3-8.2)
[2023-11-19] MEDS: FLORASTOR PO SCH (08:16)
[2023-11-19] MEDS: PROZAC PO SCH ×2 (08:16→08:17)
[2023-11-19] MEDS: XARELTO PO SCH (08:16)
[2023-11-19] MEDS: MULTIVITAMIN TABLET PO SCH (08:17)
[2023-11-19] MEDS: PROCARDIA XL PO SCH (08:17)
[2023-11-19] MEDS: ARICEPT PO SCH (08:17)
[2023-11-19] MEDS: FLOMAX PO SCH (08:18)
[2023-11-19] MEDS ORDERED: PROZAC PO SCH (09:00)
[2023-11-19] MEDS ORDERED: LACTOBACILLUS PO SCH (09:00)
[2023-11-19] MEDS ORDERED: FLUOXETINE 10 MG PO SCH (09:00)
[2023-11-19] MEDS ORDERED: NON-FORMULARY MEDICATION (Multivitamin [Daily Multi-Vitamin] tablet) PO SCH (09:00)
--- NOTE | 2023-11-19 11:10 | PCM.PROG ---
Date/Time Seen Date Seen by Provider: 11/19/23 Time Seen by Provider: 08:30 Provider Provider: BIMAL WOMACK [facility]C, [facility] Chief Complaint Chief Complaint: HYPOXIA 2ND TO BENZO, UTI, DELERIUM Subjective Subjective: Patient has been sleeping most of the morning. Didn't eat breakfast. Took her pills without difficulty. Still requiring some oxygen. Objective Appearance: Positive No Apparent Distress Chest/Lungs: Positive Clear to Auscultation Bilaterally; Negative Rales, Rhonci or Wheezes Heart: Positive RRR GI/: Positive Soft, Nontender and Bowel Sounds Normal Neurological: Positive Cranial Nerves Intact, Alert, Disorinted and Other (+generalized weakness) Vital Signs Vital Signs: Vital Signs: Last 24 Hours 11/18/23 14:29 11/18/23 14:29 11/18/23 14:42 Temperature 97.3 F L Temperature Source Oral Pulse Rate 82 Respiratory Rate 15 Blood Pressure Blood Pressure Mean Blood Pressure Left Arm 121/58 Blood Pressure Location Blood Pressure Position Supine O2 Sat by Pulse Oximetry 97 Oxygen Delivery Method Room Air Nasal Cannula Nasal Cannula Oxygen Flow Rate 2 Height 5 ft 8 in Weight 170 lb Telemetry Type Telemetry Monitoring Telemetry Heart Rate Telemetry SPO2 EKG NE Interval EKG QRS Interval Telemetry Strip Reading 11/18/23 16:00 11/18/23 17:00 11/18/23 18:00 Temperature Temperature Source Pulse Rate Respiratory Rate Blood Pressure Blood Pressure Mean Blood Pressure Left Arm Blood Pressure Location Blood Pressure Position O2 Sat by Pulse Oximetry Oxygen Delivery Method Nasal Cannula Nasal Cannula Nasal Cannula Oxygen Flow Rate Height Weight Telemetry Type Telemetry Monitoring Telemetry Heart Rate Telemetry SPO2 EKG NE Interval EKG QRS Interval Telemetry Strip Reading 11/18/23 18:59 11/18/23 18:59 11/18/23 19:09 Temperature Temperature Source Pulse Rate Respiratory Rate Blood Pressure Blood Pressure Mean Blood Pressure Left Arm Blood Pressure Location Blood Pressure Position O2 Sat by Pulse Oximetry Oxygen Delivery Method Nasal Cannula Nasal Cannula Oxygen Flow Rate 2 Height Weight Telemetry Type Remote Telemetry Telemetry Monitoring Continues Telemetry Heart Rate 83 Telemetry SPO2 100 EKG NE Interval 0.19 EKG QRS Interval 0.07 Telemetry Strip Reading SR 11/18/23 20:00 11/18/23 20:55 11/18/23 21:00 Temperature 97 F L Temperature Source Temporal Artery Scan Pulse Rate 66 Respiratory Rate 16 Blood Pressure 140/84 Blood Pressure Mean 102 Blood Pressure Left Arm Blood Pressure Location Right Arm Blood Pressure Position Sitting O2 Sat by Pulse Oximetry 96 Oxygen Delivery Method Nasal Cannula Nasal Cannula Nasal Cannula Oxygen Flow Rate 2 Height Weight Telemetry Type Telemetry Monitoring Telemetry Heart Rate Telemetry SPO2 EKG NE Interval EKG QRS Interval Telemetry Strip Reading 11/18/23 22:00 11/18/23 23:00 11/19/23 00:00 Temperature Temperature Source Pulse Rate Respiratory Rate Blood Pressure Blood Pressure Mean Blood Pressure Left Arm Blood Pressure Location Blood Pressure Position O2 Sat by Pulse Oximetry Oxygen Delivery Method Nasal Cannula Nasal Cannula Nasal Cannula Oxygen Flow Rate Height Weight Telemetry Type Telemetry Monitoring Telemetry Heart Rate Telemetry SPO2 EKG NE Interval EKG QRS Interval Telemetry Strip Reading 11/19/23 01:00 11/19/23 01:00 11/19/23 02:00 Temperature Temperature Source Pulse Rate Respiratory Rate Blood Pressure Blood Pressure Mean Blood Pressure Left Arm Blood Pressure Location Blood Pressure Position O2 Sat by Pulse Oximetry Oxygen Delivery Method Nasal Cannula Nasal Cannula Oxygen Flow Rate Height Weight Telemetry Type Remote Telemetry Telemetry Monitoring Continues Telemetry Heart Rate 62 Telemetry SPO2 98 EKG NE Interval 0.22 H EKG QRS Interval 0.09 Telemetry Strip Reading sr w 1st degree av block 11/19/23 03:00 11/19/23 04:00 11/19/23 05:00 Temperature Temperature Source Pulse Rate Respiratory Rate Blood Pressure Blood Pressure Mean Blood Pressure Left Arm Blood Pressure Location Blood Pressure Position O2 Sat by Pulse Oximetry Oxygen Delivery Method Nasal Cannula Nasal Cannula Nasal Cannula Oxygen Flow Rate Height Weight Telemetry Type Telemetry Monitoring Telemetry Heart Rate Telemetry SPO2 EKG NE Interval EKG QRS Interval Telemetry Strip Reading 11/19/23 05:00 11/19/23 05:10 11/19/23 06:00 Temperature 97.0 F L Temperature Source Temporal Artery Scan Pulse Rate 64 Respiratory Rate 18 Blood Pressure 152/74 H Blood Pressure Mean 100 Blood Pressure Left Arm Blood Pressure Location Left Arm Blood Pressure Position O2 Sat by Pulse Oximetry 96 Oxygen Delivery Method Nasal Cannula Nasal Cannula Nasal Cannula Oxygen Flow Rate 2 Height Weight Telemetry Type Telemetry Monitoring Telemetry Heart Rate Telemetry SPO2 EKG NE Interval EKG QRS Interval Telemetry Strip Reading 11/19/23 07:00 11/19/23 07:00 11/19/23 07:40 Temperature Temperature Source Pulse Rate Respiratory Rate Blood Pressure Blood Pressure Mean Blood Pressure Left Arm Blood Pressure Location Blood Pressure Position O2 Sat by Pulse Oximetry Oxygen Delivery Method Nasal Cannula Nasal Cannula Oxygen Flow Rate 2 Height Weight Telemetry Type Remote Telemetry Telemetry Monitoring Continues Telemetry Heart Rate 61 Telemetry SPO2 100 EKG NE Interval 0.22 H EKG QRS Interval 0.07 Telemetry Strip Reading SR with 1st Degree AVB 11/19/23 08:00 11/19/23 09:00 11/19/23 10:00 Temperature Temperature Source Pulse Rate Respiratory Rate Blood Pressure Blood Pressure Mean Blood Pressure Left Arm Blood Pressure Location Blood Pressure Position O2 Sat by Pulse Oximetry Oxygen Delivery Method Nasal Cannula Nasal Cannula Nasal Cannula Oxygen Flow Rate Height Weight Telemetry Type Telemetry Monitoring Telemetry Heart Rate Telemetry SPO2 EKG NE Interval EKG QRS Interval Telemetry Strip Reading Lab Results Lab Results: Lab Results: Last 24 Hours 11/19/23 11/18/23 11/18/23 04:50 12:00 11:43 WBC 6.83 RBC 4.49 Hgb 13.5 Hct 43.1 MCV 96.0 MCH 30.1 MCHC 31.3 L RDW Coeff of Noel 13.5 Plt Count 282 Immature Gran % (Auto) 0.4 Neut % (Auto) 62.1 Lymph % (Auto) 23.4 [place] % (Auto) 9.4 Eos % (Auto) 4.1 Baso % (Auto) 0.6 Neut # (Auto) 4.2 Lymph # (Auto) 1.6 [place] # (Auto) 0.6 Eos # (Auto) 0.3 Baso # (Auto) 0.0 Immature Gran # (Auto) 0.0 PT INR APTT Sodium 140.6 Potassium 4.02 Chloride 108.7 H Carbon Dioxide 25.7 Anion Gap 10.22 BUN 7.8 Creatinine 0.68 Estimated GFR (MDRD) 83.00 BUN/Creatinine Ratio 11.47 Glucose 90.2 Calcium 9.04 Total Bilirubin 0.73 AST 24.9 ALT 14.5 Alkaline Phosphatase 89.2 Troponin I Total Protein 6.43 Albumin 3.79 Globulin 2.64 Albumin/Globulin Ratio 1.43 Urine Color Yellow Urine Clarity Cloudy Urine pH 7.0 Ur Specific [place] 1.020 Urine Protein Negative Urine Glucose (UA) Negative Urine Ketones Negative Urine Blood Negative Urine Nitrite Negative Urine Bilirubin Negative Urine Urobilinogen 0.2 Ur Leukocyte Esterase Negative Urine Microscopic WBC 5-10 Ur Squamous Epith Cells 2-5 Urine Bacteria 3+ Hyaline Casts 0-2 Urine Mucus Trace Influ A Molecular Assay Negative by naat Influ B Molecular Assay Negative by naat RSV Antigen Negative by naat SARS CoV-2 RNA Rapid DONATO Negative 11/18/23 11:19 WBC 8.72 RBC 5.09 Hgb 15.1 Hct 48.0 H MCV 94.3 MCH 29.7 MCHC 31.5 L RDW Coeff of Noel 13.3 Plt Count 306 Immature Gran % (Auto) 0.3 Neut % (Auto) 71.1 Lymph % (Auto) 20.1 [place] % (Auto) 6.5 Eos % (Auto) 1.7 Baso % (Auto) 0.3 Neut # (Auto) 6.2 Lymph # (Auto) 1.8 [place] # (Auto) 0.6 Eos # (Auto) 0.2 Baso # (Auto) 0.0 Immature Gran # (Auto) 0.0 PT 14.9 H INR 1.46 APTT 36.1 Sodium 141.6 Potassium 3.74 Chloride 105.8 Carbon Dioxide 20.4 L Anion Gap 19.14 BUN 9.3 Creatinine 0.68 Estimated GFR (MDRD) 83.00 BUN/Creatinine Ratio 13.67 Glucose 120.5 H Calcium 9.86 Total Bilirubin 0.98 AST 25.6 ALT 19.2 Alkaline Phosphatase 105.4 Troponin I < 0.012 Total Protein 8.02 Albumin 4.68 Globulin 3.34 Albumin/Globulin Ratio 1.40 Urine Color Urine Clarity Urine pH Ur Specific [place] Urine Protein Urine Glucose (UA) Urine Ketones Urine Blood Urine Nitrite Urine Bilirubin Urine Urobilinogen Ur Leukocyte Esterase Urine Microscopic WBC Ur Squamous Epith Cells Urine Bacteria Hyaline Casts Urine Mucus Influ A Molecular Assay Influ B Molecular Assay RSV Antigen SARS CoV-2 RNA Rapid DONATO Additional Comments Additional Comments: I have independently reviewed and interpreted the labs/EKGs/imaging ordered during this hospital stay. I have reviewed outside records that are available in our EMR that pertain to medical stay including imaging/notes/labs from previous visits. Active Medications Active Medications: Medications Generic Name Dose Route Start Last Admin Trade Name Freq PRN Reason Stop Dose Admin Acetaminophen 650 mg 11/18/23 13:31 Acetaminophen 325 Mg Tablet PO Q4H PRN Mild Pain Bisacodyl 10 mg 11/18/23 15:51 Bisacodyl 10 Mg Supp.Rect RC DAILY PRN Constipation Buspirone HCl 5 mg 11/18/23 21:00 11/19/23 08:16 Buspirone Hcl 10 Mg Tablet PO 5 mg 2XD ROSE MARIE Administration Donepezil HCl 10 mg 11/19/23 09:00 11/19/23 08:17 Donepezil Hcl 10 Mg Tablet PO 10 mg DAILY ROSE MARIE Administration Fluoxetine HCl 10 mg 11/19/23 09:00 11/19/23 08:17 Fluoxetine Hcl 10 Mg Capsule PO 10 mg DAILY ROSE MARIE Administration Fluoxetine HCl 20 mg 11/19/23 09:00 11/19/23 08:16 Fluoxetine Hcl 20 Mg Capsule PO 20 mg DAILY ROSE MARIE Administration Furosemide 20 mg 11/19/23 06:00 11/19/23 05:11 Furosemide 20 Mg Tablet PO 20 mg QDAC2 ROSE MARIE Administration VANCOMYCIN/WATER FOR INJ (PEG) 1 gm in 200 mls @ 200 mls/hr 11/18/23 21:00 11/19/23 08:12 Vancomycin 1 Gram/200 Ml Premix IV 11/21/23 20:59 200 mls/hr Q12HR ROSE MARIE Administration Levothyroxine Sodium 50 mcg 11/19/23 06:00 11/19/23 05:11 Levothyroxine Sodium 50 Mcg Tablet PO 50 mcg QDAC2 ROSE MARIE Administration Lorazepam 0.5 mg 11/18/23 15:51 11/18/23 18:20 Lorazepam 0.5 Mg Tablet PO 0.5 mg Q12H PRN Administration Agitation Magnesium Hydroxide 30 ml 11/18/23 15:51 Magnesium Hydroxide 30 Ml Cup PO DAILY PRN Constipation Memantine 10 mg 11/18/23 21:00 11/19/23 08:18 Memantine Hcl 10 Mg Tablet PO 10 mg BID ROSE MARIE Administration Multivitamins 1 tab 11/19/23 09:00 11/19/23 08:17 Multivitamin 1 Tab PO 1 tab DAILY ROSE MARIE Administration Nifedipine 30 mg 11/19/23 09:00 11/19/23 08:17 Nifedipine 30 Mg Tab.Er.24 PO 30 mg DAILY ROSE MARIE Administration Olanzapine 2.5 mg 11/18/23 14:06 Olanzapine 10 Mg Vial IM Q6HR PRN Agitation Omeprazole 20 mg 11/19/23 06:00 11/19/23 05:11 Omeprazole 20 Mg Capsule.Dr PO 20 mg QDAC2 ROSE MARIE Administration Ondansetron HCl 4 mg 11/18/23 13:31 Ondansetron Hcl/Pf 4 Mg/2 Ml Sdv IVP Q6H PRN Nausea / Vomiting Potassium Chloride 20 meq 11/18/23 17:00 11/19/23 08:17 Potassium Chloride 20 Meq Tab PO 20 meq BIDWM2 ROSE MARIE Administration Quetiapine Fumarate 25 mg 11/18/23 21:00 11/18/23 20:18 Quetiapine Fumarate 25 Mg Tablet PO 25 mg BEDTIME ROSE MARIE Administration Rivaroxaban 20 mg 11/19/23 09:00 11/19/23 08:16 Rivaroxaban 10 Mg Tablet PO 20 mg DAILY ROSE MARIE Administration Saccharomyces Boulardii 250 mg 11/19/23 09:00 11/19/23 08:16 Saccharomyces Boulardii 250 Mg Capsule PO 250 mg DAILY ROSE MARIE Administration Simvastatin 40 mg 11/18/23 21:00 11/18/23 20:18 Simvastatin 40 Mg Tablet PO 40 mg BEDTIME ROSE MARIE Administration Sodium Chloride 1 syr 11/18/23 21:00 11/19/23 05:11 0.9% Sodium Chloride 10 Ml Disp.Syrin IVF 1 syr Q8HR ROSE MARIE Administration Tamsulosin HCl 0.4 mg 11/19/23 09:00 11/19/23 08:18 Tamsulosin Hcl 0.4 Mg Cap.Er.24h PO 0.4 mg DAILY ROSE MARIE Administration Zinc Oxide 1 applic 11/18/23 21:00 11/19/23 08:18 Zinc Oxide 56.7 Gm Oint TP 1 applic TID ROSE MARIE Administration Plan Plan: 1. Resistant UTI in setting of MRSA - Cont vanc. Will likely transition to linezolid, however this will require holding some psych meds including buspar and fluoxetine. 2. Acute metabolic encephalopathy in setting of UTI - Plan as above 3. Acute hypoxia in setting of benzo use - Wean to RA when able 4. Dementia - Cont home meds, zyprexa prn. Daughter admits pt will likely need "something to calm her down at night". 5. Hypertension - Cont home meds 6. Hyperlipidemia - Cont home meds 7. Hypothyroidism -Cont home meds. Recent TSH in 10/21 was normal. 8. Hx of PE - Cont xarelto DVT: Xarelto Dispo: Made inpatient today Review Statement Review Statement: I have personally discussed and reviewed the patient's visit/currently labs/imaging/decision making with Dr. Stapleton, my supervising attending. Greater that 50 minutes spent with patient, 50% of the time spent with this patient was devoted to counseling and coordination of care.
[2023-11-19] MEDS: ATIVAN PO ONE (14:59)
[2023-11-20 05:35] VITALS: BP 141/67; PULSE 65; RESP 16; TEMP 97
[2023-11-20 08:35] LABS: BASOPHILS % (AUTO) 0.6 % (0.0-3.0); EOSINOPHILS # (AUTO) 0.2 K/ul (0.0-0.7); EOSINOPHILS % (AUTO) 2.3 % (0.0-7.0); HEMATOCRIT 39.3 % (37.0-47.0); HEMOGLOBIN 12.2 g/dl (12.0-16.0); IMMATURE GRANULOCYTE % (AUTO) 0.3 % (0.0-5.0); LYMPHOCYTES # (AUTO) 1.9 K/uL (0.60-3.4); LYMPHOCYTES % (AUTO) 26.7 (10.0-50.0); MEAN CORPUSCULAR HEMOGLOBIN 29.6 pg (27.0-31.0); MEAN CORPUSCULAR VOLUME 95.4 fl (81.0-99.0); MONOCYTES # (AUTO) 0.6 K/uL (0.4-2.0); MONOCYTES % (AUTO) 8.8 (0-10); NEUTROPHILS # (AUTO) 4.3 K/ul (2.0-6.9); NEUTROPHILS % (AUTO) 61.3 % (42.2-75.2); PLATELET COUNT 275 10^3/uL (140-440); RDW COEFFICIENT OF VARIATION 13.3 % (11.6-14.8); RED BLOOD COUNT 4.12 10^6/ul (4.20-5.40); WHITE BLOOD COUNT 6.93 K/ul (4.6-10.2)
[2023-11-20 08:53] LABS: ALANINE AMINOTRANSFERASE 12.9 U/L (0-35); ALBUMIN 3.67 g/dL (3.5-5.0); ALKALINE PHOSPHATASE 83.1 U/L (53-141); ASPARTATE AMINO TRANSFERASE 18.8 U/L (14-36); BILIRUBIN,TOTAL 0.58 mg/dL (0.2-1.3); BLOOD UREA NITROGEN 11.1 mg/dL (7-17); CALCIUM 8.87 mg/dL (8.4-10.2); CHLORIDE 108.2 mmol/L (98-107); CREATININE 0.56 mg/dL (0.60-1.30); GLUCOSE 102.4 mg/dL (74-106); POTASSIUM 3.73 mmol/L (3.5-5.1); SODIUM 138.9 mmol/L (134.5-145); TOTAL PROTEIN 6.33 g/dL (6.3-8.2)
[2023-11-20] MEDS: INVANZ 1 GM in SODIUM CHLORIDE 50 ML IV ONE (09:35)
--- NOTE | 2023-11-20 09:43 | DCSUM ---
Admission Date Admission Date: 11/18/23 Discharge Date Discharge Date: 11/20/23 Admission Diagnosis Admission Diagnosis: 1. Resistant UTI in setting of MRSA Discharge Diagnosis Discharge Diagnosis: 1. Resistant UTI in setting of MRSA and ESBL + Klebsiella 2. Acute metabolic encephalopathy in setting of resistant UTI - improved 3. Dementia 4. Hypertension 5. Hyperlipidemia 6. Hypothyroidism Hospital Provider Hospital Provider: BIMAL WOMACK [facility]-C, [facility] Primary [facility] Physician Primary Care Physician: MANDY GONZÁLES Summary of History and Physical Summary of History and Physical: Patient is an 78 year old female from [facility] who presented to ER with worsening confusion and UTI. Daughter Jessie provided history. She states that patient has not been herself for past 2-3 days, has been more confused and agitated. She states she has been weaker than her normal but this has been ongoing last several weeks since a mental health admission in [place]. She has hx of recurrent UTIs. Overall labs unremarkable. However a urine culture from 11/15 showed MRSA. Vanc given in ER. Pt was given a benzo to help calm her down and this did cause her to desat as well. 2L oxygen has been placed and patient has been since stable. Admitted to med surg. Hospital Course Subjective: Patient was treated with vancomycin to treat the urine culture from 11/15 showing MRSA. She overall has done well, stay has been uneventful. She does at times become tearful, mildly agitated, yells out "help me." Nursing staff often able to calm her down and redirect. She does respond well to the oral prn ativan that was started at the [facility]. She did not require zyprexa or other sedatives while here. She has been eating 30-50%. Urine culture from 11/17 ended up growing ESBL+ klebsiella sensitive to invanz. Discussed with daughter the plan to do 4 more days of linezolid to cover MRSA, which will require holding buspar and prozac in meantime. They can be resumed the following day after linezolid is discontinued. We will also do invanz IM x9 days starting tomorrow, received first dose today, to treat the ESBL klebsiellaNick Roman in agreement with plan of care. Appearance: No Apparent Distress and Alert HEENT: Supple CVS: Other (RRR) Abdomen: Soft, Non-Tender and No Distention Respiratory: No Accessory Muscle Use Extremities: No Edema Vital Signs: Most Recent Vital Signs Temperature 97.0 F L 11/20/23 05:34 Temperature Source Temporal Artery Scan 11/20/23 05:34 Temperature Source Infrared 11/18/23 10:53 Pulse Rate 65 11/20/23 05:34 Respiratory Rate 16 11/20/23 05:34 Blood Pressure 141/67 H 11/20/23 05:34 Blood Pressure Mean 91 11/20/23 05:34 Blood Pressure Left Arm 121/58 11/18/23 14:29 Blood Pressure Location Right Arm 11/20/23 05:34 Blood Pressure Position Supine 11/20/23 05:34 O2 Sat by Pulse Oximetry 92 L 11/20/23 05:34 Oxygen Delivery Method Nasal Cannula 11/20/23 07:36 Oxygen Flow Rate 1 11/20/23 07:36 Height 5 ft 8 in 11/18/23 14:29 Weight 170 lb 11/18/23 14:29 Telemetry Type Remote Telemetry 11/20/23 06:56 Telemetry Monitoring Continues 11/20/23 06:56 Telemetry Heart Rate 61 11/20/23 06:56 Telemetry SPO2 95 11/20/23 06:56 EKG MO Interval 0.22 H 11/20/23 06:56 EKG QRS Interval 0.06 11/20/23 06:56 Telemetry Strip Reading SR w/1st deg AVB 11/20/23 06:56 Imaging: EXAM: CHEST RADIOGRAPH (1 VIEW) TECHNIQUE: Frontal Chest Radiograph. HISTORY: Chest pain short of breath COMPARISON: 06/25/2023 FINDINGS: Lines, Tubes, Devices: None Lungs and Pleura: No focal consolidation. No pleural effusion. No pneumothorax. No pulmonary edema. Cardiomediastinum: Normal cardiomediastinal silhouette. Atherosclerotic aortic calcifications. Bones/Soft Tissues: No acute osseous abnormality. Soft tissue calcifications noted around the left glenohumeral joint. This may be calcific tendonitis or bursitis.. Upper Abdomen: Within normal limits. IMPRESSION: No acute radiographic abnormality 2. Calcific bursitis or tendonitis in the left shoulder. Lab Results Last 24 Hours: 11/20/23 08:28 WBC 6.93 RBC 4.12 L Hgb 12.2 Hct 39.3 MCV 95.4 MCH 29.6 MCHC 31.0 L RDW Coeff of Noel 13.3 Plt Count 275 Immature Gran % (Auto) 0.3 Neut % (Auto) 61.3 Lymph % (Auto) 26.7 [place] % (Auto) 8.8 Eos % (Auto) 2.3 Baso % (Auto) 0.6 Neut # (Auto) 4.3 Lymph # (Auto) 1.9 [place] # (Auto) 0.6 Eos # (Auto) 0.2 Baso # (Auto) 0.0 Immature Gran # (Auto) 0.0 Sodium 138.9 Potassium 3.73 Chloride 108.2 H Carbon Dioxide 25.0 Anion Gap 9.43 BUN 11.1 Creatinine 0.56 L Estimated GFR (MDRD) 104.00 BUN/Creatinine Ratio 19.82 Glucose 102.4 Calcium 8.87 Total Bilirubin 0.58 AST 18.8 ALT 12.9 Alkaline Phosphatase 83.1 Total Protein 6.33 Albumin 3.67 Globulin 2.66 Albumin/Globulin Ratio 1.37 Vancomycin Trough 12.925 Discharge Instructions Discharge Planning: Discharge Planning > [address] Payam Stapleton. Discharge Medications: Medications at Discharge (Home Meds & RX) Discharge Plan Discharge Discharge Orders: Discharge Patient (ONCE); Ordered 11/20/23 Ordered By: BIMAL WOMACK Activity Restrictions/Additional Instructions: DISCHARGE TO SNF DX: RESISTANT UTI MRSA UTI: LINEZOLID 600 MG BID PO FOR 4 DAYS STARTING 11/20. HOLD BUSPAR AND PROZAC WHILE TAKING. MAY RESUME 11/24. ESBL + KLEBSIELLA: INVANZ 1 GM IM X9 DAYS STARTING 11/20. Patient Disposition: TRANSFER SNF Prescriptions: New linezolid 600 mg tablet 600 mg PO BID 4 Days Qty: 8 0RF Rx Instructions: START 11/20 X4 DAYS ertapenem 1 gram recon soln 1 g IM DAILY 9 Days Qty: 9 0RF Rx Instructions: START 11/20 X9 DAYS Continued simvastatin 40 MG tablet 40 mg PO BEDTIME nifedipine [Procardia XL] 60 MG tablet extended release 24hr 30 mg PO DAILY levothyroxine [Synthroid] 50 MCG tablet 50 mcg PO QDAC potassium chloride 10 mEq tablet extended release 20 meq PO BID memantine 28 mg capsule,sprinkle,ER 24hr 28 mg PO DAILY furosemide 20 mg tablet 20 mg PO DAILY bisacodyl 10 mg suppository 10 mg MO DAILY PRN (Reason: constipation) donepezil 10 mg tablet 10 mg PO DAILY Lactobacillus 1 cap PO DAILY lorazepam 0.5 mg tablet 0.5 mg PO Q12H PRN (Reason: anxiety) magnesium hydroxide [Milk of Magnesia] 400 mg/5 mL suspension 30 ml PO DAILY PRN (Reason: constipation) multivitamin [Daily Multi-Vitamin] Tablet 1 tab PO DAILY tamsulosin 0.4 mg capsule 0.4 mg PO DAILY Xarelto 20 mg tablet 20 mg PO DAILY Secura Protective (zinc oxide) 10 % cream 1 applic topical TID Rx Instructions: apply to buttocks every shift quetiapine 25 mg tablet 25 mg PO BEDTIME omeprazole 20 mg capsule,delayed release(DR/EC) 20 mg PO DAILY Discontinued buspirone 5 mg tablet 5 mg PO 2XD fluoxetine 10 mg tablet 10 mg PO DAILY fluoxetine [Prozac] 10 mg capsule 20 mg PO QDAY Did you review [place] MAIL EXAMINER for ALL controlled substances?: Not Applicable Discussed opioids are addictive and Narcan is available by prescription or from pharmacy.: No Condition: Stable
== END 2023-11-20 11:15 | DRG 689 ==
LOC: MEDSURG B 10:48 → ED 10:48 → MEDSURG B 14:13
PROVIDERS: ADMIT Hospitalist; ATTEND Physician Assistant